=== PATIENT | male | born 1950 | race Caucasian/White ===

== ENCOUNTER → 2016-12-22 | Outpatient (CLI) | payer BC ==
[~2016-12-22] MED LIST: ALFU10TA30 PO; BNC40 PO
[2016-12-22 13:15] LABS: BASO % 0.4 %; BASO ABS # 0.02 K/uL (0-0.2); COMPLETE YES; EOS % 1.8 %; HEMATOCRIT 41.2 % (42-52); IG% 0.2 %; LYMPH % 23.9 %; LYMPH ABS # 1.31 K/uL (1.2-3.4); MEAN CELL VOLUME 92.4 fL (80-100); MEAN CORPUSCULAR HEMOGLOBIN 32.3 pg (25-34); MONO % 10.8 %; NEUT % 62.9 %; PLATELET COUNT 210 K/uL (130-400); RED BLOOD COUNT 4.46 M/uL (4.7-6.1); WHITE BLOOD COUNT 5.47 K/uL (4.8-10.8)
[2016-12-22 14:36] LABS: BLOOD UREA NITROGEN 15 mg/dl (7-18); BUN/CREATININE RATIO 15.3 (10-20); CALCIUM 8.4 mg/dl (8.5-10.1); CARBON DIOXIDE 29 mmol/L (21-32); CHLORIDE 102 mmol/L (98-107); CREATININE 0.99 mg/dl (0.60-1.40); GLUCOSE 107 mg/dl (70-99); POTASSIUM 3.8 mmol/L (3.5-5.1); SODIUM 138 mmol/L (136-145)
== END | disposition home or self-care (01) ==
LOC: C.LABBC 10:06
PROVIDERS: ATTEND Family Medicine
DX: R10.9 Unspecified abdominal pain (principal)

== ENCOUNTER → 2016-12-22 | Outpatient (CLI) | payer BC ==
[~2016-12-22] MED LIST changes: +OPTIRAY 320 IV PRN
--- NOTE | 2016-12-22 16:24 | DIAGNOSTIC IMAGING REPORT ---
ABDOMEN AND PELVIS CT WITH IV AND ORAL CONTRAST CT DOSE: 760.57 mGy.cm HISTORY: Pain R10.9 Abdominal pain LLQ, LUQ - r/o diverticulitis.[id number] TECHNIQUE: Multiaxial CT images of the abdomen and pelvis were performed following the use of intravenous and oral contrast. COMPARISON STUDY: 11/14/2008 FINDINGS: Lung bases are clear. There is small hilar hernia. Interval cholecystectomy. Spleen is uniform. 5 mm chronic cyst superior aspect of the spleen. Liver is uniform throughout. Pancreas is unremarkable. Kidneys negative for hydronephrosis. The bowel pattern is nonobstructive. There are scattered colonic diverticuli with no evidence for diverticulitis. Several small mesenteric nodes possibly reactive. IMPRESSION: 1. Interval cholecystectomy. 2. Scattered colonic diverticuli with no evidence of diverticulitis. 3. Mild mesenteric adenitis. Electronically signed by: Amadeo Rodrigues M.D. 12/22/2016 4:23 PM Dictated Date/Time: 12/22/2016 4:19 PM
== END | disposition home or self-care (01) ==
LOC: C.CTS 13:36
PROVIDERS: ATTEND Family Medicine
DX: R10.9 Unspecified abdominal pain (principal)

== ENCOUNTER 2025-07-16 10:24 | Inpatient (IN) ==
--- NOTE | 2025-07-16 11:04 | Emergency Department Note ---
History of Present Illness General Chief complaint: Urinary Symptoms Stated complaint: URINARY PROBLEM Time Seen by Provider: 07/16/25 10:39 History of Present Illness Maximum Pain Intensity: 10 This is a 75-year-old male who presents to the emergency department via private vehicle with complaints of "painful urination, thyroid issues". The patient states that earlier this month he notes that his eyes were "bulging" and he was concerned noting history of Graves' disease. Patient states that he underwent further thyroid testing and there were abnormalities noted. He notes that he was started on methimazole and a diuretic. Patient denies any fevers or chills. However he does note ongoing suprapubic abdominal discomfort particularly with attempted urination. He also notes bilateral lower extremity edema. He notes he has not been able to sleep over the past few days. Home Medications Medication Instructions Recorded Confirmed Type alfuzosin 10 mg tablet,extended 10 mg PO HS 03/23/21 07/16/25 History release 24 hr (Uroxatral) diltiazem HCl 240 mg 240 mg PO HS 03/23/21 07/16/25 History capsule,extended release 24 hr metoprolol succinate 50 mg 50 mg PO BID 03/23/21 07/16/25 History tablet,extended release 24 hr furosemide 20 mg tablet 20 mg PO DAILY 07/16/25 07/16/25 History methimazole 10 mg tablet 10 mg PO BID 07/16/25 07/16/25 History potassium chloride 10 mEq 10 meq PO DAILY 07/16/25 07/16/25 History capsule,extended release tadalafil 5 mg tablet 5 mg PO UD 07/16/25 07/16/25 History Allergies Allergy/AdvReac Type Severity Reaction Status Date / Time No Known Allergies Allergy Unverified 02/08/11 09:33 Past Med/Surg History Problem List (Updated 07/16/25 @ 17:04 by Mehran Sagastume PA-C) Suprapubic discomfort (Acute) Atrial fibrillation with RVR (Acute) Decompensated heart failure (Acute) Thyrotoxicosis due to Graves' disease (Acute) Medical History History of multiple sclerosis BPH (benign prostatic hyperplasia) Chronic atrial fibrillation Hereditary hemochromatosis Greater trochanteric bursitis of right hip Tendinitis of left rotator cuff Surgical History History of repair of rotator cuff History of total left hip arthroplasty History of total right hip arthroplasty Family History (Updated 07/16/25 @ 15:14 by Berenice Guerra PA-C) Other Familial hemochromatosis Social History Smoking Status: Never smoker Preferred Language: Tunisian Feels Safe at Home: Yes Review of Systems A total of 10 systems reviewed and were otherwise negative Physical Exam Vital Signs Vital Signs - 24 hr 07/16/25 10:30 07/16/25 11:07 07/16/25 11:12 Temperature 36.8 C Temperature Source Temporal Artery Scan Pulse Rate 121 H 117 H 124 H Pulse Rate [Apical] Respiratory Rate 18 16 Respiratory Effort / Characteristics Non-Labored Spontaneous Respiratory Depth Normal Respiratory Pattern Blood Pressure 147/97 H Blood Pressure [Right Arm] Blood Pressure Mean 113 Blood Pressure Mean [Right Arm] Blood Pressure Position Sitting Pulse Oximetry 96 97 Oxygen Delivery Method Room Air Room Air Sepsis Recent Fever Within 48 Hours Yes Sepsis New/Unexplained Change in Mental Status No Sepsis Action Taken by Nursing No Action Required 07/16/25 12:30 07/16/25 13:26 07/16/25 13:40 Temperature Temperature Source Pulse Rate 117 H Pulse Rate [Apical] 127 H 118 H Respiratory Rate 16 16 Respiratory Effort / Characteristics Non-Labored Spontaneous Non-Labored Spontaneous Respiratory Depth Normal Normal Respiratory Pattern Regular Blood Pressure 163/105 H Blood Pressure [Right Arm] 135/105 H 152/112 H Blood Pressure Mean Blood Pressure Mean [Right Arm] 115 125 Blood Pressure Position Pulse Oximetry 98 97 Oxygen Delivery Method Room Air Room Air Sepsis Recent Fever Within 48 Hours Sepsis New/Unexplained Change in Mental Status Sepsis Action Taken by Nursing VITAL SIGNS - Vital signs and nursing notes were reviewed. Stable and afebrile. GENERAL - 75-year-old male appearing his stated age who is in no acute distress. Communicates well with provider and answers questions appropriately. SKIN - Without rashes. There is bilateral lower extremity edema noted. HEAD - NC/AT. EYES - PERRL with EOMI bilaterally. Sclera anicteric. EARS - No deformities of external structures noted on gross examination bilaterally. NOSE - Midline and without cyanosis. No epistaxis or purulent drainage noted. MOUTH/OROPHARYNX - Without perioral cyanosis. NECK - Neck with FROM. No nuchal rigidity. LUNGS - CTA CARDIAC - tachycardic with irregular rate and rhythm ABDOMEN - Abdominal contour normal without pulsations or visible masses. BS normoactive all four quadrants. No tenderness, palpable masses, hepatosplenomegaly, or ascites noted. EXTREMITIES - No clubbing or peripheral cyanosis. +5/5 strength noted in UE/LE bilaterally. NEUROLOGIC - Cranial nerves II through XII grossly intact. PSYCH -alert, oriented and pleasant on exam Course Administered Medications Propranolol HCl (Propranolol Hcl 20 Mg Tab) 20 mg PO Q2H MARTHA Stop: 08/15/25 14:59 Last Admin: 07/16/25 15:53 Dose: 20 mg Documented By: REID Propylthiouracil (Propylthiouracil 50 Mg Tab) 200 mg PO Q6H MARTHA Stop: 08/15/25 14:59 Last Admin: 07/16/25 15:59 Dose: 200 mg Documented By: REID Discontinued Medications Furosemide (Furosemide 40 Mg/4 Ml Vial) 40 mg IV ONE ONE Stop: 07/16/25 14:33 Last Admin: 07/16/25 14:45 Dose: 40 mg Documented By: EUGENIA Potassium Chloride (K Nilson / Wtr) 10 meq in 100 mls @ 100 mls/hr IV Q1H MARTHA Stop: 07/16/25 16:29 Last Admin: 07/16/25 16:10 Dose: 100 mls/hr Documented By: Infusion: 07/16/25 16:05 Dose: Infused Documented By: Admin: 07/16/25 14:46 Dose: 100 mls/hr Documented By: EUGENIA Ioversol (Optiray 320 125ml) 119 ml IV ONCE ONE Stop: 07/16/25 14:34 Last Admin: 07/16/25 14:34 Dose: 119 ml Documented By: GLENNY Metoprolol Tartrate (Metoprolol Tartrate 1 Mg/Ml Vial) 5 mg IV NOW STA Stop: 07/16/25 13:10 Last Admin: 07/16/25 13:26 Dose: 5 mg Documented By: EDWIN Potassium Chloride (Potassium Chloride Crtab 20 Meq Tabcr) 60 meq PO NOW STA Stop: 07/16/25 13:35 Last Admin: 07/16/25 13:43 Dose: 60 meq Documented By: EUGENIA Tamsulosin HCl (Tamsulosin Hcl 0.4 Mg Cap) 0.4 mg PO NOW ONE Stop: 07/16/25 14:25 Last Admin: 07/16/25 14:45 Dose: 0.4 mg Documented By: EUGENIA Medical Decision Making Laboratory Data 07/16/25 10:45 07/16/25 10:45 Lab Results 07/16/25 07/16/25 07/16/25 Range/Units 10:45 11:38 11:40 WBC 6.04 (4.8-10.8) K/ul RBC 3.73 L (4.70-6.10) M/uL Hgb 12.3 L (14.0-18.0) g/dl Hct 33.1 L (42.0-52.0) % MCV 88.7 (80.0-100.0) fL MCH 33.0 (25.0-34.0) pg MCHC 37.2 H (32.0-36.0) g/dL RDW Std Deviation 36.9 (36.4-46.3) fL RDW Coeff of Chris 11.5 (11.5-14.5) % Plt Count 242 (130-400) K/uL MPV 9.6 (9.4-12.4) fL Immature Gran % (Auto) 0.3 % Neut % (Auto) 76.0 % Lymph % (Auto) 10.9 % Haakon % (Auto) 11.8 % Eos % (Auto) 0.7 % Baso % (Auto) 0.3 % Neut # (Auto) 4.59 (1.40-6.50) K/uL Lymph # (Auto) 0.66 L (1.20-3.40) K/uL Haakon # (Auto) 0.71 H (0.11-0.59) K/uL Eos # (Auto) 0.04 (0.00-0.50) K/uL Baso # (Auto) 0.02 (0.00-0.20) K/uL Immature Gran # (Auto) 0.02 (0.01-0.20) K/uL PT 11.4 (9.0-12.0) Seconds INR 1.1 (0.9-1.1) APTT 28 (21-31) Seconds PTT Ratio 1.0 Sodium 135 L (136-145) mmol/L Potassium 3.4 L (3.5-5.1) mmol/L Chloride 100 (98-107) mmol/L Carbon Dioxide 27 (21-32) mmol/L Anion Gap 8 (3-11) BUN 18 (6-23) mg/dl Creatinine 0.56 L (0.6-1.4) mg/dl Est Cr Clr Drug Dosing 117.7 ml/min eGFR 101.52 BUN/Creatinine Ratio 32.1 H (10-20) Glucose 136 H (70-99(Fasting)) mg/dl Lactate 1.2 (0.4-2.0) mmol/L Calcium 9.2 (8.6-10.3) mg/dl Magnesium 1.9 (1.7-2.4) mg/dl Total Bilirubin 1.5 H (0.2-1.0) mg/dl AST 16 (13-39) U/L ALT 15 (7-52) U/L Alkaline Phosphatase 57 (34-104) U/L Troponin I High Sens 10.6 (0-20) pg/ml B-Natriuretic Peptide 297 H (0-100) pg/ml Total Protein 6.4 (6.0-8.3) gm/dl Albumin 3.7 (3.4-5.0) gm/dl Globulin 2.7 (2.5-4.0) gm/dl Albumin/Globulin Ratio 1.4 (0.9-2) Procalcitonin < 0.02 (0-0.5) ng/ml TSH < 0.010 L (0.300-4.500) uIu/ml Free T4 5.88 H (0.61-1.60) ng/dl Urine Color Yellow Urine Appearance Clear (Clear) Urine pH 7.0 (4.5-7.5) Ur Specific [place] 1.015 (1.000-1.030) Urine Protein Negative (Negative) Urine Glucose (UA) Negative (Negative) Urine Ketones 2+ H (Negative) Urine Blood Trace-intact H (Negative) Urine Nitrite Negative (Negative) Urine Bilirubin Negative (Negative) Urine Urobilinogen Negative (Negative) Ur Leukocyte Esterase Negative (Negative) Urine RBC 0-2 (0-2) /hpf Urine WBC 0-5 (0-5) /hpf Ur Epithelial Cells 0-2 (0-2) /hpf Urine Bacteria None Seen (None Seen) Urine Comment Imaging Data Radiologist's Impression: Abdomen/Pelvis CT 07/16/25 13:21 CT SCAN OF THE ABDOMEN AND PELVIS WITH IV CONTRAST CLINICAL HISTORY: Lower abdominal pain. COMPARISON STUDY: Abdominal CT scans dated 12/22/2016 and 11/14/2008. TECHNIQUE: Following the IV administration of 119 cc of Optiray 320, CT scan of the abdomen and pelvis is performed from the lung bases to the proximal femora. Images are reviewed in the axial, sagittal, and coronal planes. IV contrast was administered without complication. A dose lowering technique was utilized adhering to the principles of ALARA. FINDINGS: Lung bases: The heart is markedly enlarged noting a small pericardial effusion. There is bibasilar scarring/atelectasis. No airspace consolidation or pleural effusion is identified. Liver: The contrast-enhanced liver is normal in size, contour, and attenuation. There is no intrahepatic biliary ductal dilatation. The hepatic veins and portal veins are patent. Gallbladder: Surgically absent noting clips in the gallbladder fossa. Spleen: Normal in size and attenuation. Pancreas: Mild atrophic and grossly unremarkable. Adrenal glands: Nonspecific thickening of the adrenal glands is similar to previous. Kidneys: The contrast enhanced kidneys are normal in size. There is moderate to severe left hydroureteronephrosis. There is associated left-sided perinephric stranding and trace fluid. The uterus dilated to the level of the bladder with no obstructing stone or lesion clearly seen. No hydronephrosis is seen on the right. The kidneys enhance symmetrically. A retroaortic left renal vein is incidentally noted. Abdominal vasculature: There is moderate atherosclerotic calcification and ectasia of the abdominal aorta. Bowel: There is moderate colonic diverticulosis without CT evidence of acute diverticulitis. No bowel obstruction is seen. The appendix is not visualized. Peritoneum: There is no intraperitoneal free air or abdominal ascites. There is a fat-containing umbilical hernia. Lymphadenopathy: None. Pelvic viscera: Evaluation of the pelvis is degraded by streak artifact from bilateral hip arthroplasties. The prostate gland is enlarged and heterogeneous. The bladder is distended, and the wall appears thickened/trabeculated indicating chronic outlet obstruction. There are large bladder diverticula. There are bilateral fat-containing groin hernias. Skeletal structures: The skeletal structures are osteopenic. There is moderate lumbosacral spondylosis. No lytic or blastic lesions are seen. Bilateral hip arthroplasties are in place. There is a large amount of bursal fluid around the right hip. IMPRESSION: 1. There is moderate to severe left hydroureteronephrosis, with the left ureter dilated to the level of the bladder. No obstructing stone or lesion is seen by CT, and this is new from 12/22/2016. There is associated left-sided perinephric stranding and trace fluid. Follow up with urology is recommended. 2. There is no hydronephrosis on the right. 3. Prostatomegaly with significant bladder distention and evidence of chronic bladder outlet obstruction. 4. Colonic diverticulosis without CT evidence of acute diverticulitis. 5. Marked cardiomegaly. 6. Additional findings as above. ACT 112: Negative or not required by law. Electronically signed by: Luan Jiménez M.D. 07/16/2025 3:20 PM Chest CTA 07/16/25 13:21 CT ANGIOGRAM OF THE CHEST CLINICAL HISTORY: Fever. Chills. Evaluate for pulmonary embolus. COMPARISON STUDY: Chest CT February 08, 2011. TECHNIQUE: Following the IV administration of 119 cc of Optiray 320, CT angiogram of the chest was performed from the upper abdomen to the thoracic inlet utilizing the pulmonary embolus protocol. Images are reviewed in the axial, sagittal, and coronal planes. 3-D MIPS images are created and assessed. IV contrast was administered without complication. A dose lowering technique was utilized adhering to the principles of ALARA. CT DOSE: 7.58 mGy.cm FINDINGS: No pulmonary emboli are identified. There is no thoracic aortic dissection. The heart is moderately enlarged. There is no pericardial effusion. There is no thoracic lymphadenopathy. There is no pneumothorax. Trace left pleural fluid is noted. There is no significant pleural effusion. No consolidation is identified suggest pneumonia. Linear densities within lungs represent scarring or atelectasis. The central airways are patent. Abdomen and pelvis CT will be reported separately. IMPRESSION: 1. No pulmonary emboli identified. 2. No acute intrathoracic findings. 3. Moderate cardiomegaly. ACT 112: Negative or not required by law. Electronically signed by: aSrath Foster M.D. 07/16/2025 2:54 PM MDM Narrative Patient was seen and evaluated as above in room B08. Review was performed of triage nursing notes and vital signs. After obtaining a thorough history and physical examination the above work up was performed. Patient presents to us today for evaluation of abnormal thyroid studies with progressive bilateral lower extremity edema and suprapubic abdominal pain. On arrival the patient is tachycardic, found to be in A-fib with RVR. EKG was performed and per my interpretation reveals atrial fibrillation with RVR at a rate of 117 bpm. QTc 460. QRS 86. There is no ST elevation on this rhythm tracing. Patient did note he already had his metoprolol today and diltiazem last evening. Patient will be maintained on the cardiac and pulse oximetry monitoring. Options of care were discussed with the patient. IV access was established and labs were drawn. There is no leukocytosis. There is minor anemia with hemoglobin of 12.3. Coags normal. Mild hypokalemia 3.4 with hyponatremia at 135. No evidence of kidney or liver failure. Mild hyperbilirubinemia at 1.5. Troponin within normal range making ACS less likely. BNP is elevated at 297. Procalcitonin undetectable making sepsis less likely. TSH markedly low at an undetectable level of less than 0.010. Free T4 markedly elevated at 5.88. I did review the patient's chest x-rays obtained a few days ago in the [facility] record. While here the patient was medicated with IV Lopressor noting the A-fib with RVR. I do believe that further evaluation and management in a patient setting is warranted. I discussed the case with hospitalist service, I spoke with Nick Guerra PA-C. Plan at this time is to proceed with further studies to include CT of the chest as well as abdomen/pelvis CT. I also added on bilateral Doppler ultrasounds. CT imaging as above and I reviewed these findings with the patient. No PE. There are multiple findings in the abdomen/pelvis which may be contributory to the patient's lower urinary tract symptoms at this time. The urinalysis here does not suggest infection. GCS: 15 In the evaluation and treatment of this patient the following differential diagnoses were entertained: A-fib with RVR, thyrotoxicosis, thyroid storm, malignancy, dehydration, among others Impression & Plan Atrial fibrillation with RVR, Thyrotoxicosis due to Graves' disease, Decompensated heart failure, Suprapubic discomfort Discharge Plan Visit Data Chief Complaint: Urinary Symptoms Stated Complaint: URINARY PROBLEM ED Provider: Omari Koch ED Midlevel Provider: Mehran Sagastume Discharge Problem: Atrial fibrillation with RVR, Thyrotoxicosis due to Graves' disease, Decompensated heart failure, Suprapubic discomfort Patient Disposition: Admitted As Inpatient Condition: Good Forms Stand Alone Forms: My [facility] Prescriptions Prescriptions: No Action metoprolol succinate 50 mg tablet extended release 24 hr 50 mg PO BID diltiazem HCl 240 mg capsule,extended release 24hr 240 mg PO HS alfuzosin [Uroxatral] 10 mg tablet extended release 24 hr 10 mg PO HS Rx Instructions: administer after the same meal each day potassium chloride 10 mEq capsule, extended release 10 meq PO DAILY furosemide 20 mg tablet 20 mg PO DAILY methimazole 10 mg tablet 10 mg PO BID tadalafil 5 mg tablet 5 mg PO UD Referrals Referrals: Lee Longoria MD [Primary Care Provider] -
[2025-07-16 11:26] LABS: Hematocrit (blood only) 33.1 % (42.0-52.0); Hemoglobin 12.3 g/dl (14.0-18.0); Immature Granulocytes # (auto) 0.02 K/uL (0.01-0.20); Immature Granulocytes % (auto) 0.3 %; Mean Corpuscular Hemoglobin 33.0 pg (25.0-34.0); Mean Corpuscular Volume 88.7 fL (80.0-100.0); Platelet Count 242 K/uL (130-400); RDW Standard Deviation 36.9 fL (36.4-46.3); Red Blood Count 3.73 M/uL (4.70-6.10); White Blood Count 6.04 K/ul (4.8-10.8)
[2025-07-16 11:43] LABS: Alanine Aminotransferase 15 U/L (7-52); Albumin Globulin Ratio 1.4 (0.9-2); Alkaline Phosphatase 57 U/L (34-104); Anion Gap 8 (3-11); Bilirubin,Total 1.5 mg/dl (0.2-1.0); Blood Urea Nitrogen 18 mg/dl (6-23); Calcium 9.2 mg/dl (8.6-10.3); Carbon Dioxide 27 mmol/L (21-32); Chloride 100 mmol/L (98-107); Creatinine Clr Calc Pharmacy 117.7 ml/min; Globulin 2.7 gm/dl (2.5-4.0); Glucose 136 mg/dl (70-99(Fasting)); Magnesium 1.9 mg/dl (1.7-2.4); Potassium 3.4 mmol/L (3.5-5.1); Sodium 135 mmol/L (136-145); Total Protein 6.4 gm/dl (6.0-8.3)
[2025-07-16 12:00] LABS: INR 1.1 (0.9-1.1); Partial Thromboplastin Time 28 Seconds (21-31); Prothrombin Time 11.4 Seconds (9.0-12.0); Thyroid Stimulating Hormone < 0.010 uIu/ml (0.300-4.500)
[2025-07-16 12:05] LABS: Appearance Urine Clear (Clear); Glucose Urine UA Negative (Negative)
--- NOTE | 2025-07-16 12:19 | Emergency Department Note ---
ED Visit Note I was consulted by the Advanced Practice Provider, Mehran Sagastume PA-C. I personally made/approved the management plan and take responsibility for the patient management. I performed a substantive portion of the visit. This includes the aspects of: -History/Physical/Personally seeing the patient -MDM .
[2025-07-16 12:28] LABS: Epithelial Cell Urine 0-2 /hpf (0-2)
[2025-07-16] MEDS: METOPROLOL TARTRATE 1 MG/ML VIAL IV STA (13:26)
[2025-07-16] MEDS: POTASSIUM CHLORIDE CRTAB 20 MEQ TABCR PO STA (13:43)
--- NOTE | 2025-07-16 14:30 | History & Physical Report ---
Date of Service July 16, 2025 Assessment & Plan (1) Thyrotoxicosis due to Graves' disease: Plan: This is a 75-year-old male with PMH of chronic atrial fibrillation (not on anticoagulation), hyperthyroidism with history of Graves disease, hereditary hemochromatosis, hyperlipidemia, BPH, history of multiple sclerosis and other medical problems listed below who presents with progressive swelling of lower extremities over the past week as well as suprapubic pain and thyroid lab abnormalities and presentation consistent with thyrotoxicosis. History of Graves disease and was treated with methimazole years ago but then felt to be in remission Seen by PCP on 07/10 for BLE edema and fatigue - TFTs abnormal on 07/14- TSH <0.01 and free T4 7.8 - started on methimazole 10mg BID In ED, found to have A fib with RVR with HR 118 with BLE edema Repeat TSH <0.010 and free T4 5.[address] Carty of endocrine - Rogel-Wartofsky Point Scale 30 points, suggestive of impending thyroid storm * Appropriate for PCU admission, consider transfer to ICU if patient exhibits progressive storm symptoms (febrile, AMS, TOMOGRAPHY TECHNOLOGIST changes), could consider hydrocortisone 100 Q8H at that time * PTU 200mg Q6H while inpatient and transition to methimazole 20mg BID at time of discharge * Propranolol 20mg PO Q2H for now until HR within normal range, then consider ext release TID dosing * Will need repeat TFTs in 1 month, Dr. Carty will arrange for clinic f/u in 3 weeks (2) Atrial fibrillation with RVR: Plan: ECG with a fib with rvr at 117 H/o chronic atrial fibrillation, asymptomatic Non-selective beta blockers as above, will hold Lopressor for now Hold evening diltiazem given CHF findings, awaiting echo Not on anticoagulation due to patient preference as outpatient. Follows with Dr. Gonzales, previously has tried coumadin and alverto Discussed IV heparin while admitted given A fib with RVR and hyperthyroidism - patient deliberating and upon readdressing this evening, patient agreeable to IV heparin Appreciate cardiology input (3) Decompensated heart failure: Plan: Progressive BLE and 8-10 lb weight gain in last 2 weeks Started on 20mg PO Lasix on 07/10 without improvement Chest CTA without evidence of PE. Trace left pleural fluid is noted, no significant pleural effusion. No consolidation s/o PNA. Moderate cardiomegaly 2D echo ordered (previous echo from 2018 with EF 60%) Given 40mg IV lasix x 1 in ED with potassium supplementation, cardiology consulted for further diuresis recs Strict I&Os, daily weights, low sodium diet (4) Suprapubic discomfort: (5) Hydronephrosis: (6) BPH (benign prostatic hyperplasia): Plan: Inability to empty bladder over past week, takes alfuzosin HS UA unremarkable CT abd/pelvis with moderate-severe left hydroureteronephrosis. There is associated left-sided perinephric stranding and trace fluid. No obstructing stone or lesion is seen by CT, and this is new from 12/22/2016 Hernandez catheter placed - discussed with urology, who reviewed imaging. Feel hydro is possibly reflex and agree with catheter for decompression. No add'l intervention needed at this time Routine urology consult placed Starting on empirin Rocephin given perinephric stranding, per d/w urology (7) Hereditary hemochromatosis: Plan: Follows with heme-onc -last therapeutic phlebotomy was done on 07/08.Has CBC and ferritin monitored monthly (with goal ferritin of <100) and follows a low iron diet, instructed to minimize alcohol intake Follow CBC (8) History of multiple sclerosis: Plan: Mentioned remotely in chart, back in 2016, may need to clarify further DVT Ppx: IV heparin Code status: FULL PCP: Swati Dispo: Admitted to PCU Patient seen in collaboration with Dr. Bravo. Please see addendum. I spent a total of 80 minutes coordinating, documenting, and providing care for this patient excluding time spent in the performance of separately billed services or time spent by another provider/QHP. History of Present Illness Chief Complaint: suprapubic pain, fatigue, abnormal labs Primary Care Provider: Lee Longoria MD This is a 75-year-old male with PMH of chronic atrial fibrillation (not on anticoagulation), hyperthyroidism with history of Graves disease, hereditary hemochromatosis, hyperlipidemia, BPH, history of multiple sclerosis and other medical problems listed below who presents with progressive swelling of lower extremities over the past week as well as suprapubic pain. History obtained from patient and extensive chart review. Was seen in the outpatient clinic a week ago for lower extremity swelling and fatigue, found to have abnormal thyroid function test consistent with hyperthyroidism. Has history of Graves disease and was treated with methimazole years ago but then felt to be in remission. Last had TFTs checked in December 2024 and they were WNL. On 07/10 in clinic, TSH 0.02 and free T4 4.0. Ask a doc Endo was consulted on 07/10, who recommended repeat thyroid labs in 2 weeks but due to persistent symptoms, patient was seen again in clinic on 07/12 and TSH <0.01 and free T4 7.8 at that time. Methimazole 10 mg BID was started. Was also noted to have worsening BLE edema. CXR unremarkable and no respiratory symptoms. Started on Lasix 20mg PO and Kcl 10meq daily at that time. Presents to ED today with ongoing BLE edema, estimating 8-10 lb weight gain in the past 2 weeks. No palpitations or chest pain. Has chronic A fib which is asymptomatic, per patient. No fever or chills. No confusion, lightheadedness. Having suprapubic pain and feels like he cannot fully empty bladder. UA done in clinic 07/12 was unremarkable. Frequent bowel movements but denies diarrhea. Last echo showed preserved EF of 60% in July 2018. Was scheduled for outpatient echo 07/24. Follows with Dr. Gonzales of cardiology for history of atrial fibrillation. Was previously on coumadin years ago but "did not tolerate it well". Was then on Eliquis but in 2022, developed numbness and tingling of hands with occasional dizziness, which he attributed to Eliquis. Symptoms resolved after he discontinued. Is not on anticoagulation. Follows with heme-onc for hereditary hemochromatosis-last therapeutic phlebotomy was done on 07/08.Has CBC and ferritin monitored monthly (with goal ferritin of <100) and follows a low iron diet, instructed to minimize alcohol intake. Allergies Allergy/AdvReac Type Severity Reaction Status Date / Time No Known Allergies Allergy Unverified 02/08/11 09:33 Home Medications Medication Instructions Recorded Confirmed Type alfuzosin 10 mg tablet,extended 10 mg PO HS 03/23/21 07/16/25 History release 24 hr (Uroxatral) diltiazem HCl 240 mg 240 mg PO HS 03/23/21 07/16/25 History capsule,extended release 24 hr metoprolol succinate 50 mg 50 mg PO BID 03/23/21 07/16/25 History tablet,extended release 24 hr furosemide 20 mg tablet 20 mg PO DAILY 07/16/25 07/16/25 History methimazole 10 mg tablet 10 mg PO BID 07/16/25 07/16/25 History potassium chloride 10 mEq 10 meq PO DAILY 07/16/25 07/16/25 History capsule,extended release tadalafil 5 mg tablet 5 mg PO UD 07/16/25 07/16/25 History Past Med/Surg History Problem List (Updated 07/16/25 @ 18:03 by Berenice Guerra PA-C) Hydronephrosis Suprapubic discomfort (Acute) Atrial fibrillation with RVR (Acute) Decompensated heart failure (Acute) Thyrotoxicosis due to Graves' disease (Acute) Medical History History of multiple sclerosis BPH (benign prostatic hyperplasia) Chronic atrial fibrillation Hereditary hemochromatosis Greater trochanteric bursitis of right hip Tendinitis of left rotator cuff Surgical History History of repair of rotator cuff History of total left hip arthroplasty History of total right hip arthroplasty Family History (Updated 07/16/25 @ 15:14 by Berenice Guerra PA-C) Other Familial hemochromatosis Social History Smoking Status: Never smoker Preferred Language: Mexican Feels Safe at Home: Yes Review of Systems Review of Systems: At least ten systems reviewed and negative except as noted in the HPI. Physical Exam Physical Exam: General Appearance: WD/WN, vitals as above, NAD, sitting up in bed, pleasant, conversing easily Head: normocephalic, atraumatic Eyes: PERRL, conjunctivae normal, anicteric sclerae, + periorbital edema, proptosis ENT: external ear and nose normal, oropharynx normal Neck: normal visual inspection, +thyromegaly Respiratory: normal respiratory effort, + coarse breath sounds. No accessory muscle use Cardiovascular: irregular rate &rhythm, normal peripheral pulses, 2+ BLE edema up to knees Chest: normal inspection of chest Abdomen/GI: normal bowel sounds, soft, + suprapubic TTP, no guarding Extremities/Musculoskeletal: no cyanosis or clubbing, extremities motor strength 5/5 Neurologic: PERRL, EOMI, accommodation nl, no face palsy, no dysarthria, CN's II-XI intact bilaterally and moves all extremities Psychiatric: A+Ox3 Skin: no rashes, normal color, warm/dry Results & Data Results & Data Vital Signs (Past 12 Hours) Vital Signs Temp Pulse Pulse Resp BP BP Pulse Ox 07/16/25 13:40 118 H 16 152/112 H 97 07/16/25 13:26 117 H 163/105 H 07/16/25 12:30 127 H 16 135/105 H 98 07/16/25 11:12 124 H 07/16/25 11:07 117 H 16 97 07/16/25 10:30 36.8 C 121 H 18 147/97 H 96 O2 Del Method 07/16/25 13:40 Room Air 07/16/25 13:26 07/16/25 12:30 Room Air 07/16/25 11:12 07/16/25 11:07 Room Air 07/16/25 10:30 Room Air Laboratory Results Short CBC 07/16/25 Range/Units 10:45 WBC 6.04 (4.8-10.8) K/ul Hgb 12.3 L (14.0-18.0) g/dl Hct 33.1 L (42.0-52.0) % Plt Count 242 (130-400) K/uL BMP 07/16/25 10:45 Sodium 135 L Potassium 3.4 L Chloride 100 Carbon Dioxide 27 BUN 18 Creatinine 0.56 L Glucose 136 H Calcium 9.2 Liver Function 07/16/25 Range/Units 10:45 Total Bilirubin 1.5 H (0.2-1.0) mg/dl AST 16 (13-39) U/L ALT 15 (7-52) U/L Alkaline Phosphatase 57 (34-104) U/L Albumin 3.7 (3.4-5.0) gm/dl Urine 07/16/25 Range/Units 11:40 Urine Color Yellow Urine Appearance Clear (Clear) Urine pH 7.0 (4.5-7.5) Ur Specific [place] 1.015 (1.000-1.030) Urine Protein Negative (Negative) Urine Glucose (UA) Negative (Negative) Diagnostic Findings Chest CTA 07/16/25 13:21 CT ANGIOGRAM OF THE CHEST CLINICAL HISTORY: Fever. Chills. Evaluate for pulmonary embolus. COMPARISON STUDY: Chest CT February 08, 2011. TECHNIQUE: Following the IV administration of 119 cc of Optiray 320, CT angiogram of the chest was performed from the upper abdomen to the thoracic inlet utilizing the pulmonary embolus protocol. Images are reviewed in the axial, sagittal, and coronal planes. 3-D MIPS images are created and assessed. IV contrast was administered without complication. A dose lowering technique was utilized adhering to the principles of ALARA. CT DOSE: 2026.58 mGy.cm FINDINGS: No pulmonary emboli are identified. There is no thoracic aortic dissection. The heart is moderately enlarged. There is no pericardial effusion. There is no thoracic lymphadenopathy. There is no pneumothorax. Trace left pleural fluid is noted. There is no significant pleural effusion. No consolidation is identified suggest pneumonia. Linear densities within lungs represent scarring or atelectasis. The central airways are patent. Abdomen and pelvis CT will be reported separately. IMPRESSION: 1. No pulmonary emboli identified. 2. No acute intrathoracic findings. 3. Moderate cardiomegaly. ACT 112: Negative or not required by law. Electronically signed by: Sarath Foster M.D. 07/16/2025 2:54 PM ECG Additional Comments: A fib with RVR at 117, LAD Code Status & VTE Plan VTE Prophylaxis Plan VTE Prophylaxis will be ordered: Yes Supervising Physician Co-Signing Physician Notes Attending addendum: The patient was seen and examined in the emergency room in the presence of the He has a history of Graves' disease off any medications and also paroxysmal atrial fibrillation not taking any Coumadin because of the low Kervin score as per the patient He has been complaining of palpitation, bilateral leg swelling and weight gain and also noted to have very low TSH and high T4 Denies any chest pain, any abdominal pain nausea no vomiting On examination Lying in bed without any acute distress Has significant tachycardia and high blood pressure without any apparent distress Chestclear to auscultate bilaterally HeartS1-S2, irregular Abdomenbenign Extremities1-2+ edema bilaterally CNSalert, awake and oriented x 3 and no focal neurodeficit His admission labs, EKG and imaging studies reviewed Has thyrotoxicosis with history of Graves' diseasediscussed with Dr. 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
[2025-07-16] MEDS: OPTIRAY 320 125ml IV ONE (14:34)
[2025-07-16] MEDS: TAMSULOSIN HCL 0.4 MG CAP PO ONE (14:45)
[2025-07-16] MEDS: FUROSEMIDE 40 MG/4 ML VIAL IV ONE (14:45)
[2025-07-16] MEDS: POTASSIUM CHLORIDE / WTR 10 MEQ/100 ML PLCT IV SCH (14:46)
--- NOTE | 2025-07-16 14:55 | CT Scan Report ---
CT ANGIOGRAM OF THE CHEST CLINICAL HISTORY: Fever. Chills. Evaluate for pulmonary embolus. COMPARISON STUDY: Chest CT February 08, 2011. TECHNIQUE: Following the IV administration of 119 cc of Optiray 320, CT angiogram of the chest was pe rformed from the upper abdomen to the thoracic inlet utilizing the pulmonary embolus protocol. Images are reviewed in the axial, sagittal, and coronal planes. 3-D MIPS images are created and assessed. I V contrast was administered without complication. A dose lowering technique was utilized adhering to the principles of ALARA. CT DOSE: 2026.58 mGy.cm FINDINGS: No pulmonary emboli are identified. There is no thoracic aortic dissection. The heart is mo derately enlarged. There is no pericardial effusion. There is no thoracic lymphadenopathy. There is n o pneumothorax. Trace left pleural fluid is noted. There is no significant pleural effusion. No conso lidation is identified suggest pneumonia. Linear densities within lungs represent scarring or atelect asis. The central airways are patent. Abdomen and pelvis CT will be reported separately. IMPRESSION: 1. No pulmonary emboli identified. 2. No acute intrathoracic findings. 3. Moderate cardiomegaly. ACT 112: Negative or not required by law. Electronically signed by: Sarath Foster M.D. 07/16/2025 2:54 PM
[2025-07-16] MEDS ORDERED: PROPRANOLOL HCL 60 MG LA CAP PO SCH (15:00)
--- NOTE | 2025-07-16 15:21 | CT Scan Report ---
CT SCAN OF THE ABDOMEN AND PELVIS WITH IV CONTRAST CLINICAL HISTORY: Lower abdominal pain. COMPARISON STUDY: Abdominal CT scans dated 12/22/2016 and 11/14/2008. TECHNIQUE: Following the IV administration of 119 cc of Optiray 320, CT scan of the abdomen and pelv is is performed from the lung bases to the proximal femora. Images are reviewed in the axial, sagitta l, and coronal planes. IV contrast was administered without complication. A dose lowering technique w as utilized adhering to the principles of ALARA. FINDINGS: Lung bases: The heart is markedly enlarged noting a small pericardial effusion. There is bibasilar sc arring/atelectasis. No airspace consolidation or pleural effusion is identified. Liver: The contrast-enhanced liver is normal in size, contour, and attenuation. There is no intrahepa tic biliary ductal dilatation. The hepatic veins and portal veins are patent. Gallbladder: Surgically absent noting clips in the gallbladder fossa. Spleen: Normal in size and attenuation. Pancreas: Mild atrophic and grossly unremarkable. Adrenal glands: Nonspecific thickening of the adrenal glands is similar to previous. Kidneys: The contrast enhanced kidneys are normal in size. There is moderate to severe left hydrouret eronephrosis. There is associated left-sided perinephric stranding and trace fluid. The uterus dilate d to the level of the bladder with no obstructing stone or lesion clearly seen. No hydronephrosis is seen on the right. The kidneys enhance symmetrically. A retroaortic left renal vein is incidentally n oted. Abdominal vasculature: There is moderate atherosclerotic calcification and ectasia of the abdominal a dinesh. Bowel: There is moderate colonic diverticulosis without CT evidence of acute diverticulitis. No bowel obstruction is seen. The appendix is not visualized. Peritoneum: There is no intraperitoneal free air or abdominal ascites. There is a fat-containing umbi lical hernia. Lymphadenopathy: None. Pelvic viscera: Evaluation of the pelvis is degraded by streak artifact from bilateral hip arthroplas ties. The prostate gland is enlarged and heterogeneous. The bladder is distended, and the wall appear s thickened/trabeculated indicating chronic outlet obstruction. There are large bladder diverticula. There are bilateral fat-containing groin hernias. Skeletal structures: The skeletal structures are osteopenic. There is moderate lumbosacral spondylosi s. No lytic or blastic lesions are seen. Bilateral hip arthroplasties are in place. There is a large amount of bursal fluid around the right hip. IMPRESSION: 1. There is moderate to severe left hydroureteronephrosis, with the left ureter dilated to the level of the bladder. No obstructing stone or lesion is seen by CT, and this is new from 12/22/2016. There i s associated left-sided perinephric stranding and trace fluid. Follow up with urology is recommended. 2. There is no hydronephrosis on the right. 3. Prostatomegaly with significant bladder distention and evidence of chronic bladder outlet obstruct ion. 4. Colonic diverticulosis without CT evidence of acute diverticulitis. 5. Marked cardiomegaly. 6. Additional findings as above. ACT 112: Negative or not required by law. Electronically signed by: Luna Jiménez M.D. 07/16/2025 3:20 PM
[2025-07-16] MEDS: PROPRANOLOL HCL 20 MG TAB PO SCH (15:53)
[2025-07-16] MEDS ORDERED: POLYETHYLENE (MIRALAX) 17 GM PACK PO PRN (18:11)
[2025-07-16] MEDS: cefTRIAXone SODIUM 2,000 MG/50 ML BAG IV SCH (18:44)
--- NOTE | 2025-07-16 18:46 | Ultrasound Report ---
Examination: Doppler venous ultrasound of the lower extremity Comparison: None Technique: Grayscale evaluation with compression, spectral flow, and color Doppler assessment of the deep venous system of the leg, from the groin to the knee, as well as the lower leg Findings: The external iliac, common femoral, femoral, popliteal, peroneal and anterior and posterior tibial veins demonstrate normal compressibility and blood flow. Impression: No evidence for DVT of the bilateral lower extremity Electronically signed by Jordan Waterman 07-16-2025 6:44 PM
[2025-07-16] MEDS: HEPARIN 25000 UNIT/500 ML D5W 25,000 UNITS/500 ML BAG IV SCH (18:57)
[2025-07-16] MEDS: HEPARIN SOD (PORCINE) 1000 UNIT/ML IV ONE (18:57)
[2025-07-16] MEDS: Heparin IV Adult Wt-Based Low-Dose w/ INITIAL Bolus Protocol IV STA (18:58)
[2025-07-16] MEDS: TAMSULOSIN HCL 0.4 MG CAP PO SCH (20:49)
[2025-07-16] MEDS: ONDANSETRON INJ 2 MG/ML 2 ML VIAL IV PRN (20:50)
--- NOTE | 2025-07-16 20:57 | Urology Consultation ---
Date of Consultation July 16, 2025 Assessment & Plan (1) Hydronephrosis: Patient has been admitted on the hospitalist service. From a urologic perspective we recommend the following: Patient was noted to have issues consistent with urinary retention Hernandez catheter has been placed and this modality should continue Would recommend initiating Flomax which has been initiated by primary service Consideration be given to performing cystoscopy at some point in the future, this can likely be pursued as an outpatient If the patient remains hospitalized consideration may be given to performing a voiding trial versus performing this as an outpatient Would recommend following serial labs Additional recommendations to be forthcoming based on his clinical course as unfolds Supervising Physician Co-Signing Physician Notes Patient discussed with Praveen chen Seen independently this morning, please see my notes for further details History of Present Illness Reason for Consultation: Urinary retention Attending Physician: John Bravo MD History of Present Illness This is a 75-year-old male who presented to the hospital secondary to progressive weakness as well as suprapubic pain. Patient says that over the past several weeks he has been having difficulty urinating. He specifically notes that he has had a decreased urinary stream and feels as though he cannot empty his bladder completely requiring multiple episodes of voiding in order to empty his bladder. He does note some dysuria at times but denies any back or flank pain. He denies any fevers, shakes, or chills and also denies any hematuria. He does report suprapubic discomfort. The patient does report a history of BPH for which he takes alfuzosin as an outpatient. Since arrival hospitalist patient has had labs and imaging which) reviewed. CT scan abdomen pelvis showed the patient had moderate to severe left hydronephrosis but no obstructing kidney stones were noted on CT scan. There is no right-sided hydronephrosis. Patient was noted to have prostamegaly with significant bladder distention. He also underwent a CT scan of the chest that showed no evidence of pulmonary emboli. A venous Doppler of the bilateral lower extremity showed no evidence of DVT.Labs included CBC were white blood cell count platelet count were normal. Hemoglobin hematocrit 12.3 and 33.1. Coagulation studies were normal. Chemistry profile showed sodium and potassium are 135 and 3.4. BUN and creatinine were both not elevated. Urinalysis was not indicative of infection. Since arrival to the hospital patient has had a Hernandez catheter placed and notes marked symptomatic relief of his presenting symptomatology. He was resting comfortably in bed at the time of my interview and was in no distress Allergies Allergy/AdvReac Type Severity Reaction Status Date / Time No Known Allergies Allergy Unverified 02/08/11 09:33 Home Medications Medication Instructions Recorded Confirmed Type alfuzosin 10 mg tablet,extended 10 mg PO HS 03/23/21 07/16/25 History release 24 hr (Uroxatral) diltiazem HCl 240 mg 240 mg PO HS 03/23/21 07/16/25 History capsule,extended release 24 hr metoprolol succinate 50 mg 50 mg PO BID 03/23/21 07/16/25 History tablet,extended release 24 hr furosemide 20 mg tablet 20 mg PO DAILY 07/16/25 07/16/25 History methimazole 10 mg tablet 10 mg PO BID 07/16/25 07/16/25 History potassium chloride 10 mEq 10 meq PO DAILY 07/16/25 07/16/25 History capsule,extended release tadalafil 5 mg tablet 5 mg PO UD 07/16/25 07/16/25 History Patient History Medical History History of multiple sclerosis BPH (benign prostatic hyperplasia) Chronic atrial fibrillation Hereditary hemochromatosis Greater trochanteric bursitis of right hip Tendinitis of left rotator cuff Surgical History History of repair of rotator cuff History of total left hip arthroplasty History of total right hip arthroplasty Family History (Updated 07/16/25 @ 15:14 by Berenice Guerra PA-C) Other Familial hemochromatosis Social History Smoking Status: Never smoker Second Hand Exposure: No; Hx Alcohol Use: Yes Alcohol type: wine Hx Substance Use: No Preferred Language: Malay Sternman Required: No Beliefs That Will Affect Care: None Current Living Situation: Spouse Other Information That Helps Us Care for You: No Feels Safe at Home: Yes Safety Concerns: Feels Safe At This Time Assistive Devices: Hearing Aid - Bilateral Review of Systems Review of Systems: All systems reviewed & are unremarkable except as noted in HPI & below Physical Exam Constitutional: WD/WN, vitals as above Eyes: no conjunctival abnormality ENMT: Ears: no hearing impairment and no external ear abnormality Mouth: no oropharynx abnormality Neck: trachea midline Respiratory: normal respiratory effort; no respiratory distress and no labored breathing Cardiovascular: Rate/Rhythm: regular rate and regular rhythm Gastrointestinal (Abdomen): Abdomen is soft without distention. There is no rigidity or signs of peritonitis. There is no pain with palpation Musculoskeletal: No calf tenderness Skin: no rashes Neurologic: moves all extremities Psychiatric: A+Ox3, euthymic affect Genitourinary: No CVA tenderness with percussion bilaterally. Hernandez catheter is in place draining clear yellow urine Results & Data Vital Signs (Past 12 Hours) Vital Signs Temp Pulse Pulse Resp BP BP Pulse Ox 07/16/25 20:50 111 H 155/77 H 07/16/25 19:47 36.6 C 125 H 18 167/90 H 96 07/16/25 19:30 125 H 152/92 H 07/16/25 18:14 36.8 C 117 H 18 167/93 H 97 07/16/25 17:33 112 H 21 168/97 H 97 07/16/25 13:40 118 H 16 152/112 H 97 07/16/25 13:26 117 H 163/105 H 07/16/25 12:30 127 H 16 135/105 H 98 07/16/25 11:12 124 H 07/16/25 11:07 117 H 16 97 07/16/25 10:30 36.8 C 121 H 18 147/97 H 96 O2 Del Method 07/16/25 20:50 07/16/25 19:47 Room Air 07/16/25 19:30 07/16/25 18:14 Room Air 07/16/25 17:33 Room Air 07/16/25 13:40 Room Air 07/16/25 13:26 07/16/25 12:30 Room Air 07/16/25 11:12 07/16/25 11:07 Room Air 07/16/25 10:30 Room Air PG Care Time/CCT Total # of Minutes Spent Total Time Spent with Patient: Total time spent is greater than 50% in coordination of care (as documented) at patient's floor/unit and/or counseling patient: Coding Level of Care Code 31712 INT INP/OBS CARE 3/75MIN Diagnoses Hydronephrosis N13.30
[2025-07-17 01:56] LABS: Hematocrit (blood only) 31.0 % (42.0-52.0); Hemoglobin 11.1 g/dl (14.0-18.0); Immature Granulocytes # (auto) 0.01 K/uL (0.01-0.20); Immature Granulocytes % (auto) 0.2 %; Mean Corpuscular Hemoglobin 31.5 pg (25.0-34.0); Mean Corpuscular Volume 88.1 fL (80.0-100.0); Platelet Count 218 K/uL (130-400); RDW Standard Deviation 37.2 fL (36.4-46.3); Red Blood Count 3.52 M/uL (4.70-6.10); White Blood Count 5.46 K/ul (4.8-10.8)
[2025-07-17 02:12] LABS: Alanine Aminotransferase 13.0 U/L (7-52); Albumin Globulin Ratio 1.4 (0.9-2); Alkaline Phosphatase 54.0 U/L (34-104); Anion Gap 8.0 (3-11); Bilirubin,Total 1.0 mg/dl (0.2-1.0); Blood Urea Nitrogen 17.0 mg/dl (6-23); Calcium 8.7 mg/dl (8.6-10.3); Carbon Dioxide 29.0 mmol/L (21-32); Chloride 101.0 mmol/L (98-107); Creatinine Clr Calc Pharmacy 104.6 ml/min; Globulin 2.3 gm/dl (2.5-4.0); Glucose 122.0 mg/dl (70-99(Fasting)); Magnesium 1.8 mg/dl (1.7-2.4); Potassium 3.2 mmol/L (3.5-5.1); Sodium 138.0 mmol/L (136-145); Total Protein 5.5 gm/dl (6.0-8.3)
[2025-07-17 02:37] LABS: ANTI-Xa, UFH(UnfractionatedHep 0.12 IU/ml (0.3-0.7)
[2025-07-17] MEDS ORDERED: Nursing to Pharmacy Communication SCH (02:45)
[2025-07-17] MEDS: MAGNESIUM SULFATE / D5W 1 GM/100 ML BAG IV ONE (02:58)
[2025-07-17] MEDS: POTASSIUM CHLORIDE CRTAB 20 MEQ TABCR PO STA (03:00)
[2025-07-17] MEDS: HEPARIN SOD (PORCINE) 1000 UNIT/ML IV ONE ×2 (03:01→10:39)
[2025-07-17] MEDS: ACETAMINOPHEN 325 MG TAB PO PRN (05:43)
[2025-07-17 09:45] LABS: ANTI-Xa, UFH(UnfractionatedHep 0.17 IU/ml (0.3-0.7)
[2025-07-17] MEDS: TAMSULOSIN HCL 0.4 MG CAP PO SCH (10:21)
[2025-07-17] MEDS: POTASSIUM CHLORIDE 10 MEQ TABCR PO SCH ×2 (10:26→10:27)
[2025-07-17] MEDS: FUROSEMIDE INJ 20 MG/2 ML VIAL IV ONE (10:26)
[2025-07-17 10:42] LABS: Anion Gap 4.0 (3-11); Blood Urea Nitrogen 18.0 mg/dl (6-23); Calcium 8.5 mg/dl (8.6-10.3); Carbon Dioxide 30.0 mmol/L (21-32); Chloride 102.0 mmol/L (98-107); Creatinine Clr Calc Pharmacy 96.9 ml/min; Glucose 151.0 mg/dl (70-99(Fasting)); Magnesium 2.0 mg/dl (1.7-2.4); Potassium 3.5 mmol/L (3.5-5.1); Sodium 136.0 mmol/L (136-145)
--- NOTE | 2025-07-17 11:02 | Urology Progress Note ---
Date of Service July 17, 2025 Assessment & Plan (1) Urinary retention due to benign prostatic hyperplasia: (2) Hydronephrosis: Plan Urinary retentionacute; left hydronephrosis with extension of the dilation down to the level of the bladder No right sided hydronephrosis CT and lab work all personally reviewed Creatinine is appropriate Primary reason for admission is secondary to A-fib and hypertension Discussed options for him long-term He could return to Dr. Guerrier but asked to transition to our practice Will plan to discharge him home with a catheter in place and follow-up with cystoscopy and voiding trial in 1 week Has been on alfuzosin, we should probably convert him to tamsulosin plus dutasteride to try to maximize his medication management starting DIMA His left-sided hydronephrosis extends to the level bladder implying that this may be related to his distention and reflux driven rather than a true obstructive cause, we can explore this further as an outpatient Discussed all of these options with him and he is very agreeable We will sign off, please call us if further issues arise during this hospitalization Admission and Anticipated Discharge Date Admission Date: July 16, 2025 Subjective Comfortable appearing today Reports that the catheter drastically improved his symptoms He is anxious to go home Has had some tachycardia and hypertension but has chronic A-fib as well as some chronic thyroid issuessuspect that his underlying acute bladder issues may have provoked an exacerbation of his chronic cardiac issues On further questioning he has been following with Dr. Carroll Guerrier for some time and has been on alfuzosin but no other BPH directed medications Physical Exam Physical Exam: Comfortable appearing Abdomen soft Urine clear No CVA tenderness in the left or right No suprapubic tenderness Results & Data Vital Signs (Past 12 Hours) Vital Signs Temp Pulse Pulse Resp BP BP Pulse Ox 07/17/25 10:13 118 H 144/101 H 07/17/25 07:33 112 H 149/81 H 07/17/25 05:35 114 H 18 155/88 H 07/17/25 02:57 36.6 C 117 H 18 150/88 H 97 07/17/25 02:04 77 07/17/25 01:28 118 H 130/80 07/16/25 23:14 36.6 C 112 H 18 129/80 96 O2 Del Method 07/17/25 10:13 07/17/25 07:33 07/17/25 05:35 07/17/25 02:57 Room Air 07/17/25 02:04 07/17/25 01:28 07/16/25 23:14 Room Air PG Care Time/CCT Total # of Minutes Spent Total Time Spent with Patient: Total time spent is greater than 50% in coordination of care (as documented) at patient's floor/unit and/or counseling patient: Coding Level of Care Code 48834 SUB INP/OBS CARE 2/35MIN Diagnoses Urinary retention due to benign prostatic hyperplasia N40.1; R33.8 Hydronephrosis N13.30
--- NOTE | 2025-07-17 11:14 | Cardiology Consultation ---
Date of Consultation July 17, 2025 Assessment & Plan (1) Atrial fibrillation with RVR: (2) Thyrotoxicosis due to Graves' disease: (3) Leg edema: (4) Hypokalemia: Plan Patient is a 75 year old with recent diagnosis of recurrent hyperthyroidism/Graves disease -started on methimazole as outpatient last week -Over the next few days worsening palpitations, fatigue, LE edema and urinary retention also noted. -Came to ER for evaluation Diagnosed with thyrotoxicosis/Graves disease, borderline thyroid storm -Endocrinology consulted - started on PTU -Transitioned from metoprolol to propranolol - currently receiving 20 mg every 2 hours Afib RVR - history of chronic/persistent afib -Elevated rates due to thyroid disorder and electrolyte imbalance -Supplement potassium for goal 4-5 -Magnesium acceptable -Continue propranolol for now per endocrine. Will likely transition back to metoprolol as thyroid dysfunction improves. -Resume low dose diltiazem 60 mg TID (home dose was 240 mg daily). This was held on admission due to LE edema and concerns for HF. Acceptable to resume at this time. -Echo with preserved LVEF, no significant valvular disease. Severe biatrial enlargement. No change from 2018 study -Patient has not been anticoagulated due to personal preference and prior "side effects" on Coumadin, Eliquis, and possibly pradaxa. -During admission he has been on IV heparin for stroke prophylaxis and DVT prophylaxis. LE edema likely due to afib RVR and urinary retention -symptoms improved with several doses of IV lasix -Not indicative of acute HF Urinary retention - history of BPH. -CT Scan with hydronephrosis -symptoms improved after mondragon placement -urology consulted Case discussed with Dr. Avendano I spent a total of 70 minutes on the date of service in preparation, delivery, and documentation of the care provided to this patient, excluding any time spent in the performance of separately billed services. Vonda Thomas PA-C Department of Cardiology, [facility] This chart was completed in part utilizing Speech Voice Recognition Software. Grammatical errors, random word insertions, pronoun errors, and incomplete sentences are an occasional consequence of this system due to software limitations, ambient noise, and hardware issues. Any formal questions or concerns about the content, text, or information contained within the body of this dictation should be directly addressed to the provider for clarification. Supervising Physician Co-Signing Physician Notes I have personally performed a history and physical examination on the patient. I have reviewed the advance practitioner's documentation, and I agree with, and take responsibility for the plan of care. 75-year-old male presented to the emergency department due to lower extremity edema, urinary retention, and hyperthyroidism/ thyrotoxicosis with borderline thyroid storm. Atrial fibrillation with rapid ventricular response noted on admission. Outpatient metoprolol transitioned to propranolol 20 mg every 2 hours due to acute thyrotoxicosis. PTU ordered by endocrinology. Diltiazem initially placed on hold due to concerns regarding heart failure, and posssible reduced LV ejection fraction. Edema has significantly improved with placement of Mondragon catheter and IV furosemide. Repeat resting 2D transthoracic echocardiogram demonstrates preserved biventricular function with severe biatrial enlargement. Findings are similar to prior echocardiogram from 2018. Continue propranolol as per direction of endocrinology at this time. Transition back to metoprolol when thyroid issues are controlled. Restart short acting diltiazem cautiously, 60 mg 3 times daily to improve rate control (Outpatient dose diltiazem LA 240mg daily). Heart rate will improve with treatment of hyperthyroidism. Patient currently receiving IV heparin although he has declined long-term oral anticoagulation per review of outpatient notes. Readdress during hospitalization prior to discharge. Patient received 20 mg IV furosemide today. (Outpatient furosemide dose 20 mg daily). Postobstructive diuresis expected. Monitor fluid balance, daily weight, GFR, electrolytes. Mayank Avendano DO, [facility] I spent a total of 45 minutes on the date of service in preparation, delivery, and documentation of the care provided to this patient, excluding any time spent in the performance of separately billed services. History of Present Illness Reason for Consultation: Afib RVR in setting of Hyperthyroidism/Thyrotoxicosis; Requesting Physician: [facility] Goodwin Attending Physician: Dr. Avendano History of Present Illness Patient is a 75 year old male who presented to [facility] with complaints of LE edema, fatigue, urinary retention over the last 1-2 weeks. Patient was evaluated in outpatient clinic on 07/10 found to have low TSH and elevated T4. Started on methimazole. Also having urinary retention. UA unremarkable. Over the next few days patient developed worsening LE edema, weight gain of about 8 lbs. Worsening abdominal pain reported and he came to the ER for evaluation. In the ER, patient was found to have Afib RVR (afib was chronic). Elevated rates likely due to Thyrotoxicosis. Diltiazem and metoprolol held on admission in favor of propranolol. Started on PTU per endocrine Significant urinary retention noted with hydronephrosis. Mondragon placed with significant urine output. Urology consulted. Ongoing mondragon recommended and Flomax initiated. Due to LE edema, patient was started on IV lasix. Received 40 mg IV yesterday and 20 mg this morning. Good urine outputs now recorded. Interval improvement in his LE edema. Potassium low and this is supplemented. No orthopnea, PND. No SOB. No chest pain. He is relatively asymptomatic wiht th e afib. Mildly elevated rates. Taking propranolol 20 mg every 2 hours. History includes: 1. chronic afib dating back many years. Followed by Dr. Gonzales. Trials of anticoagulation with resultant "side effects" of medications. Patient declining oral anticoagulants. Understanding of stroke risks in the past 2. history of hyperthyroidism/graves disease (thought to be in remission and stopped methimazole years ago) 3. BPH 4. Dyslipidemia 5. Hereditary hemochromatosis with frequent phlebotomy 6. History of MS Allergies Allergy/AdvReac Type Severity Reaction Status Date / Time No Known Allergies Allergy Unverified 02/08/11 09:33 Home Medications Medication Instructions Recorded Confirmed Type alfuzosin 10 mg tablet,extended 10 mg PO HS 03/23/21 07/16/25 History release 24 hr (Uroxatral) diltiazem HCl 240 mg 240 mg PO HS 03/23/21 07/16/25 History capsule,extended release 24 hr metoprolol succinate 50 mg 50 mg PO BID 03/23/21 07/16/25 History tablet,extended release 24 hr furosemide 20 mg tablet 20 mg PO DAILY 07/16/25 07/16/25 History methimazole 10 mg tablet 10 mg PO BID 07/16/25 07/16/25 History potassium chloride 10 mEq 10 meq PO DAILY 07/16/25 07/16/25 History capsule,extended release tadalafil 5 mg tablet 5 mg PO UD 07/16/25 07/16/25 History Patient History Medical History History of multiple sclerosis BPH (benign prostatic hyperplasia) Chronic atrial fibrillation Hereditary hemochromatosis Greater trochanteric bursitis of right hip Tendinitis of left rotator cuff Surgical History History of repair of rotator cuff History of total left hip arthroplasty History of total right hip arthroplasty Family History (Updated 07/16/25 @ 15:14 by Berenice Guerra PA-C) Other Familial hemochromatosis Social History Smoking Status: Never smoker Second Hand Exposure: No; Hx Alcohol Use: Yes Alcohol type: wine Hx Substance Use: No Preferred Language: Khmer Communication Ability: Effective Designated Broker Required: No Beliefs That Will Affect Care: None Current Living Situation: Spouse Other Information That Helps Us Care for You: No Feels Safe at Home: Yes Safety Concerns: Feels Safe At This Time Assistive Devices: None Review of Systems Review of Systems: All systems reviewed & are unremarkable except as noted in HPI & below Physical Exam Constitutional: WD/WN, vitals as above well developed; no acute distress Neck: normal visual inspection Respiratory: normal respiratory effort; no labored breathing Auscultation: lungs clear to auscultation bilaterally Cardiovascular: Rate/Rhythm: + tachycardic and + irregularly irregular Heart Sounds: no murmur Vessels: no JVD Extremities: + edema (trace pretibial edema b/l ) Gastrointestinal (Abdomen): normal bowel sounds, soft, nontender, no hepatosplenomegaly Neurologic: PERRL, EOMI, accommodation nl, no face palsy, no dysarthria Psychiatric: A+Ox3, euthymic affect Results & Data Vital Signs (Past 12 Hours) Vital Signs Temp Pulse Pulse Resp BP BP Pulse Ox 07/17/25 10:13 118 H 144/101 H 07/17/25 07:33 112 H 149/81 H 07/17/25 05:35 114 H 18 155/88 H 07/17/25 02:57 36.6 C 117 H 18 150/88 H 97 07/17/25 02:04 77 07/17/25 01:28 118 H 130/80 07/16/25 23:14 36.6 C 112 H 18 129/80 96 O2 Del Method 07/17/25 10:13 07/17/25 07:33 07/17/25 05:35 07/17/25 02:57 Room Air 07/17/25 02:04 07/17/25 01:28 07/16/25 23:14 Room Air Laboratory Results Cardiac Enzymes 07/16/25 07/16/25 07/17/25 Range/Units 10:45 19:49 01:30 AST 16 14 (13-39) U/L Troponin I High Sens 10.6 8.2 (0-20) pg/ml B-Natriuretic Peptide 297 H (0-100) pg/ml Coagulation 07/16/25 Range/Units 10:45 PT 11.4 (9.0-12.0) Seconds APTT 28 (21-31) Seconds B-Natriuretic Peptide 297 H (0-100) pg/ml CBC 07/16/25 07/17/25 Range/Units 10:45 01:30 WBC 6.04 5.46 (4.8-10.8) K/ul RBC 3.73 L 3.52 L (4.70-6.10) M/uL Hgb 12.3 L 11.1 L (14.0-18.0) g/dl Hct 33.1 L 31.0 L (42.0-52.0) % Plt Count 242 218 (130-400) K/uL Neut # (Auto) 4.59 3.38 (1.40-6.50) K/uL Lymph # (Auto) 0.66 L 1.19 L (1.20-3.40) K/uL Randolph # (Auto) 0.71 H 0.82 H (0.11-0.59) K/uL Eos # (Auto) 0.04 0.04 (0.00-0.50) K/uL Baso # (Auto) 0.02 0.02 (0.00-0.20) K/uL Comprehensive Metabolic Panel 07/16/25 07/17/25 07/17/25 Range/Units 10:45 01:30 10:00 Sodium 135 L 138 136 (136-145) mmol/L Potassium 3.4 L 3.2 L 3.5 (3.5-5.1) mmol/L Chloride 100 101 102 (98-107) mmol/L Carbon Dioxide 27 29 30 (21-32) mmol/L BUN 18 17 18 (6-23) mg/dl Creatinine 0.56 L 0.63 0.68 (0.6-1.4) mg/dl Glucose 136 H 122 H 151 H (70-99(Fasting)) mg/dl Calcium 9.2 8.7 8.5 L (8.6-10.3) mg/dl AST 16 14 (13-39) U/L ALT 15 13 (7-52) U/L Alkaline Phosphatase 57 54 (34-104) U/L Total Protein 6.4 5.5 L (6.0-8.3) gm/dl Albumin 3.7 3.2 L (3.4-5.0) gm/dl Intake and Output 07/16/25 07/17/25 07/17/25 22:59 06:59 14:59 Intake Total 500 / 748.517 248.517 / 748.517 98.633 / 98.633 Output Total 1000 / 1425 425 / 1425 Balance -500 / -676.483 -176.483 / -676.483 98.633 / 98.633 Intake: IV 250 / 498.517 248.517 / 498.517 98.633 / 98.633 Heparin 27170 Unit/500 ml D5w 148.517 / 148.517 98.633 / 98.633 25,000 units In 500 ml @ 1,100 UNITS/HR 22 mls/hr IV .[id number] [facility] Rx#:[id number] Magnesium Sulfate / D5w 1 gm In 100 / 100 100 ml @ 50 mls/hr IV ONE ONE Rx#:[id number] Potassium Chloride / Wtr 10 meq 200 / 200 In 100 ml @ 100 mls/hr IV Q1H [facility] Rx#:[id number] cefTRIAXone SODIUM 2,000 mg In 50 / 50 50 ml @ 100 mls/hr IV Q24H [facility] Rx#:[id number] Oral 250 / 250 Output: Urine Amount (Catheter) 1000 / 1425 425 / 1425 Mondragon/Indwelling 1000 / 1425 425 / 1425 Other: Weight 84 kg 82.3 kg Weight Measurement Method Chair Scale Standing Scale Diagnostic Findings Telemetry reviewed: Afib with mildly elevated rates ranging 100-120 EKG reviewed on admission: Afib RVR at 117 bmp LAD Low voltage QRS Repeat EKG Afib RVR LAD Low voltage QRS No change from previous Echo report reviewed from yesterday 07/16/25: -Normal LVEF at 60-65% -Mild concentric LVH -Severe biatrial enlargement -Mild TR Mild MR compared with prior echo in 2018 - no significant changes noted Abdomen/Pelvis CT 07/16/25 13:21 CT SCAN OF THE ABDOMEN AND PELVIS WITH IV CONTRAST CLINICAL HISTORY: Lower abdominal pain. COMPARISON STUDY: Abdominal CT scans dated 12/22/2016 and 11/14/2008. TECHNIQUE: Following the IV administration of 119 cc of Optiray 320, CT scan of the abdomen and pelvis is performed from the lung bases to the proximal femora. Images are reviewed in the axial, sagittal, and coronal planes. IV contrast was administered without complication. A dose lowering technique was utilized adhering to the principles of ALARA. FINDINGS: Lung bases: The heart is markedly enlarged noting a small pericardial effusion. There is bibasilar scarring/atelectasis. No airspace consolidation or pleural effusion is identified. Liver: The contrast-enhanced liver is normal in size, contour, and attenuation. There is no intrahepatic biliary ductal dilatation. The hepatic veins and portal veins are patent. Gallbladder: Surgically absent noting clips in the gallbladder fossa. Spleen: Normal in size and attenuation. Pancreas: Mild atrophic and grossly unremarkable. Adrenal glands: Nonspecific thickening of the adrenal glands is similar to previous. Kidneys: The contrast enhanced kidneys are normal in size. There is moderate to severe left hydroureteronephrosis. There is associated left-sided perinephric stranding and trace fluid. The uterus dilated to the level of the bladder with no obstructing stone or lesion clearly seen. No hydronephrosis is seen on the right. The kidneys enhance symmetrically. A retroaortic left renal vein is incidentally noted. Abdominal vasculature: There is moderate atherosclerotic calcification and ectasia of the abdominal aorta. Bowel: There is moderate colonic diverticulosis without CT evidence of acute diverticulitis. No bowel obstruction is seen. The appendix is not visualized. Peritoneum: There is no intraperitoneal free air or abdominal ascites. There is a fat-containing umbilical hernia. Lymphadenopathy: None. Pelvic viscera: Evaluation of the pelvis is degraded by streak artifact from bilateral hip arthroplasties. The prostate gland is enlarged and heterogeneous. The bladder is distended, and the wall appears thickened/trabeculated indicating chronic outlet obstruction. There are large bladder diverticula. There are bilateral fat-containing groin hernias. Skeletal structures: The skeletal structures are osteopenic. There is moderate lumbosacral spondylosis. No lytic or blastic lesions are seen. Bilateral hip arthroplasties are in place. There is a large amount of bursal fluid around the right hip. IMPRESSION: 1. There is moderate to severe left hydroureteronephrosis, with the left ureter dilated to the level of the bladder. No obstructing stone or lesion is seen by CT, and this is new from 12/22/2016. There is associated left-sided perinephric stranding and trace fluid. Follow up with urology is recommended. 2. There is no hydronephrosis on the right. 3. Prostatomegaly with significant bladder distention and evidence of chronic bladder outlet obstruction. 4. Colonic diverticulosis without CT evidence of acute diverticulitis. 5. Marked cardiomegaly. 6. Additional findings as above. ACT 112: Negative or not required by law. Electronically signed by: Luan Jiménez M.D. 07/16/2025 3:20 PM Chest CTA 07/16/25 13:21 CT ANGIOGRAM OF THE CHEST CLINICAL HISTORY: Fever. Chills. Evaluate for pulmonary embolus. COMPARISON STUDY: Chest CT February 08, 2011. TECHNIQUE: Following the IV administration of 119 cc of Optiray 320, CT angiogram of the chest was performed from the upper abdomen to the thoracic inlet utilizing the pulmonary embolus protocol. Images are reviewed in the axial, sagittal, and coronal planes. 3-D MIPS images are created and assessed. IV contrast was administered without complication. A dose lowering technique was utilized adhering to the principles of ALARA. CT DOSE: 2027.58 mGy.cm FINDINGS: No pulmonary emboli are identified. There is no thoracic aortic dissection. The heart is moderately enlarged. There is no pericardial effusion. There is no thoracic lymphadenopathy. There is no pneumothorax. Trace left p leural fluid is noted. There is no significant pleural effusion. No consolidation is identified suggest pneumonia. Linear densities within lungs represent scarring or atelectasis. The central airways are patent. Abdomen and pelvis CT will be reported separately. IMPRESSION: 1. No pulmonary emboli identified. 2. No acute intrathoracic findings. 3. Moderate cardiomegaly. ACT 112: Negative or not required by law. Electronically signed by: Sarath Foster M.D. 07/16/2025 2:54 PM Venous Doppler Study 07/16/25 13:21 Examination: Doppler venous ultrasound of the lower extremity Comparison: None Technique: Grayscale evaluation with compression, spectral flow, and color Doppler assessment of the deep venous system of the leg, from the groin to the knee, as well as the lower leg Findings: The external iliac, common femoral, femoral, popliteal, peroneal and anterior and posterior tibial veins demonstrate normal compressibility and blood flow. Impression: No evidence for DVT of the bilateral lower extremity Electronically signed by Jordan Waterman 07-16-2025 6:44 PM Medications Administered Current Inpatient Medications Acetaminophen (Acetaminophen 325 Mg Tab) 650 mg PO Q4H PRN PRN Reason: Pain or Fever Stop: 08/15/25 18:10 Last Admin: 07/17/25 05:43 Dose: 650 mg Diltiazem HCl (Diltiazem Hcl 60 Mg Tab) 60 mg PO TID [facility] Stop: 08/16/25 10:29 Last Admin: 07/17/25 10:48 Dose: 60 mg Ceftriaxone Sodium (Rocephin) 2,000 mg in 50 mls @ 100 mls/hr IV Q24H MARTHA Stop: 07/23/25 17:59 Last Infusion: 07/16/25 19:14 Dose: Infused Heparin Sodium/Dextrose (Heparin 59183 Unit/500 Ml D5w) 25,000 units in 500 mls @ 22 mls/hr IV .[id number] [facility]; Protocol Stop: 08/15/25 18:14 Last Titration: 07/17/25 07:15 Dose: 1,100 units/hr, 22 mls/hr Melatonin (Melatonin 3 Mg Tab) 3 mg PO HS PRN PRN Reason: Sleep Stop: 08/15/25 18:10 Ondansetron HCl (Ondansetron Inj 2 Mg/Ml 2 Ml Vial) 4 mg IV Q6H PRN PRN Reason: Nausea Stop: 08/15/25 18:10 Last Admin: 07/16/25 20:50 Dose: 4 mg Polyethylene Glycol (Polyethylene (Miralax) 17 Gm Pack) 17 gm PO DAILY PRN PRN Reason: Constipation Stop: 08/15/25 18:10 Potassium Chloride (Potassium Chloride 10 Meq Tabcr) 40 meq PO DAILY MARTHA Stop: 08/16/25 09:44 Last Admin: 07/17/25 10:26 Dose: 40 meq Propranolol HCl (Propranolol Hcl 20 Mg Tab) 20 mg PO Q2H MARTHA Stop: 08/15/25 14:59 Last Admin: 07/17/25 10:19 Dose: 20 mg Propylthiouracil (Propylthiouracil 50 Mg Tab) 200 mg PO Q6H MARTHA Stop: 08/15/25 14:59 Last Admin: 07/17/25 10:20 Dose: 200 mg Tamsulosin HCl (Tamsulosin Hcl 0.4 Mg Cap) 0.4 mg PO QAM MARTHA Stop: 08/16/25 08:59 Last Admin: 07/17/25 10:21 Dose: 0.4 mg Tamsulosin HCl (Tamsulosin Hcl 0.4 Mg Cap) 0.4 mg PO HS MARTHA Stop: 08/15/25 20:59 Last Admin: 07/16/25 20:49 Dose: 0.4 mg PG Care Time/CCT Total # of Minutes Spent Total Time Spent with Patient: Total time spent is greater than 50% in coordination of care (as documented) at patient's floor/unit and/or counseling patient: 70 Coding Level of Care Code 66711 INT INP/OBS CARE 3/75MIN Diagnoses Atrial fibrillation with RVR I48.91 Thyrotoxicosis due to Graves' disease E05.00 Leg edema R60.0 Hypokalemia E87.6
[2025-07-17] MEDS: ENOXAPARIN INJ 40 MG/0.4 ML SYR SQ SCH (13:14)
[2025-07-17] MEDS: FINASTERIDE 5 MG TAB PO SCH (13:14)
--- NOTE | 2025-07-17 13:19 | Hospitalist Progress Note ---
Date of Service July 17, 2025 Assessment & Plan (1) Thyrotoxicosis due to Graves' disease: (2) Atrial fibrillation with RVR: (3) Acute heart failure with preserved ejection fraction (HFpEF, >= 50%): (4) Urinary retention due to benign prostatic hyperplasia: (5) Hydronephrosis due to obstruction of bladder: (6) Multiple sclerosis: (7) Chronic atrial fibrillation: (8) Hypokalemia: (9) Hereditary hemochromatosis: Plan Patient 75-year-old gentleman with chronic atrial fibrillation now with rapid ventricular sponsor due to thyrotoxicosis due to recurrent Graves' disease Continue every 2 hour propranolol, rates becoming better controlled Restart short acting Cardizem for better rate control per cardiology recommendations Continue PTU treatment as recommended by endocrinology Potassium has been replaced, continue to replace as needed and monitor electrolyte levels Communication with urology, no evidence of kidney infection, can discontinue antibiotics. Maintain Hernandez catheter. Anticipate discharge with Hernandez catheter and outpatient urology appointment and voiding trial. Informed patient to anticipate going home with Hernandez catheter Continue twice daily Flomax, add Proscar for his BPH Patient was not on any anticoagulation for his atrial fibrillation prior to admission. 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 He states that he was willing to accept the risk of stroke. He also apparently has not tolerated warfarin or DOAC's. At this point with Hernandez catheter in place risk of bleeding may outweigh the benefits. He would not continue anticoagulation upon discharge. Therefore we will discontinue the IV heparin. Put him on VTE prophylaxis Lovenox while the patient is in the hospital. Give additional dose of IV Lasix today, anticipate will not need any further diuretics. Now that his bladder obstruction is relieved anticipate that we will help with his swelling as well. Reviewed echocardiogram, preserved ejection fraction. Do suspect patient had some acute heart failure on presentation due to his rapid ventricular response associated with atrial fibrillation and exacerbated by his urinary retention. Admission and Anticipated Discharge Date Admission Date: July 16, 2025 Subjective Patient feeling significantly improved. Denies any chest pain or shortness of breath. Has responded well to the light Lasix. Reports his swelling is significantly improved. Physical Exam Physical Exam: Constitutional: Alert, nontoxic in appearance HEENT: Mucous membranes moist. Lungs: Clear to auscultation, decreased, no wheezes rales or rhonchi CV: S1-S2, irregular, tachycardic Abdomen: Soft, nontender, nondistended Extremities: 1+ pretibial edema, skin is loose and wrinkly, Neuro: No focal deficits Psych: Cooperative, normal mood Results & Data Results & Data Vital Signs (Past 12 Hours) Vital Signs Temp Pulse Pulse Resp BP BP Pulse Ox 07/17/25 13:05 125 H 111/75 07/17/25 10:59 36.4 C L 101 H 20 129/91 96 07/17/25 10:13 118 H 144/101 H 07/17/25 07:33 112 H 149/81 H 07/17/25 05:35 114 H 18 155/88 H 07/17/25 02:57 36.6 C 117 H 18 150/88 H 97 07/17/25 02:04 77 07/17/25 01:28 118 H 130/80 O2 Del Method 07/17/25 13:05 07/17/25 10:59 Room Air 07/17/25 10:13 07/17/25 07:33 07/17/25 05:35 07/17/25 02:57 Room Air 07/17/25 02:04 07/17/25 01:28 Diagnostic Findings Reviewed imaging, laboratory and diagnostic studies. Pertinent findings as below. WBCs 5.4 Hemoglobin 11.1 Platelets of 218 Potassium 3.5, improved Creatinine 0.68 Magnesium 2.0
[2025-07-17] MEDS: POTASSIUM CHLORIDE CRTAB 20 MEQ TABCR PO ONE (17:37)
[2025-07-17] MEDS: MELATONIN 3 MG TAB PO PRN (21:12)
[2025-07-18 05:52] LABS: Hematocrit (blood only) 32.9 % (42.0-52.0); Hemoglobin 12.1 g/dl (14.0-18.0); Mean Corpuscular Hemoglobin 32.9 pg (25.0-34.0); Mean Corpuscular Volume 89.4 fL (80.0-100.0); Platelet Count 225 K/uL (130-400); RDW Standard Deviation 37.3 fL (36.4-46.3); Red Blood Count 3.68 M/uL (4.70-6.10); White Blood Count 5.67 K/ul (4.8-10.8)
[2025-07-18 06:07] LABS: Anion Gap 5.0 (3-11); Blood Urea Nitrogen 21.0 mg/dl (6-23); Calcium 8.7 mg/dl (8.6-10.3); Carbon Dioxide 29.0 mmol/L (21-32); Chloride 103.0 mmol/L (98-107); Creatinine Clr Calc Pharmacy 104.6 ml/min; Glucose 125.0 mg/dl (70-99(Fasting)); Magnesium 1.9 mg/dl (1.7-2.4); Potassium 3.7 mmol/L (3.5-5.1); Sodium 137.0 mmol/L (136-145)
[2025-07-18] MEDS: PROPRANOLOL HCL 20 MG TAB PO SCH (09:56)
--- NOTE | 2025-07-18 11:22 | Hospitalist Progress Note ---
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 Transition to 3 times daily propranolol Continue Cardizem Continue to monitor heart rates with these medication adjustments Edema essentially resolved, no additional diuretics today Activity as tolerated Continue PTU will transition to methimazole at discharge Maintain Hernandez catheter, will be discharged with Hernandez and follow-up with urology outpatient tolerating tamsulosin and Proscar Anticipate if rates remain controlled can anticipate discharge tomorrow Admission and Anticipated Discharge Date Admission Date: July 16, 2025 Subjective Patient feeling significantly improved. No chest pain or shortness of breath. Physical Exam Physical Exam: Constitutional: Alert, nontoxic HEENT: Mucous membranes moist. Lungs: Clear to auscultation, decreased, no wheezes rales or rhonchi CV: S1-S2, irregular, slightly tachycardic Abdomen: Soft, nontender, nondistended Extremities: Trace pretibial edema Neuro: No focal deficits Psych: Cooperative, normal mood Results & Data Results & Data Vital Signs (Past 12 Hours) Vital Signs Temp Pulse Resp BP BP Pulse Ox O2 Del Method 07/18/25 09:55 120 H 154/94 H 07/18/25 07:22 36.8 C 95 H 20 138/89 96 Room Air 07/18/25 03:06 36.8 C 112 H 18 128/72 95 Room Air Diagnostic Findings Reviewed imaging, laboratory and diagnostic studies. Pertinent findings as bel ow. CBC stable Electrolytes stable Creatinine 0.63
--- NOTE | 2025-07-18 11:24 | Cardiology Progress Note ---
Date of Service July 18, 2025 Assessment & Plan (1) Atrial fibrillation with RVR: (2) Thyrotoxicosis due to Graves' disease: (3) Leg edema: (4) Hypokalemia: Plan 75-year-old male with acute thyrotoxicosis, volume overload due to obstructive uropathy, and chronic atrial fibrillation with rapid ventricular response. Heart rate improved overnight. Volume status significantly improved with placement of Hernandez catheter and gentle diuresis. Increase diltiazem to 60 mg every 6 hours. Transition back to diltiazem LA 240 mg daily at discharge. Continue propranolol as per direction of endocrinology. Transition back to metoprolol when thyroid issues are controlled. Patient with documented intolerance of multiple oral anticoagulants in the outpatient setting. Declines long-term anticoagulation at this time. Hold additional diuretic therapy at this time. Low-dose Lasix was added as outpatient recently, 07/14/2025 due to edema. Monitor fluid balance, daily weight, GFR, electrolytes. Mayank Avendano DO, [facility] Admission and Anticipated Discharge Date Admission Date: July 16, 2025 Subjective 75-year-old male seen examined at bedside. Edema markedly improved with gentle diuresis. Heart rate trending downward. Feeling well from a cardiovascular perspective. Denies palpitations or lightheadedness. No chest discomfort or s hortness of breath. Some reveals atrial fibrillation heart rate 100-120 bpm. Propranolol transition to 80 mg every 8 hours per endocrinology. Review of Systems Review of Systems: All systems reviewed & are unremarkable except as noted in Subjective Physical Exam Constitutional: well nourished; no acute distress Respiratory: no respiratory distress and no labored breathing Auscultation: no crackles, no rales, no rhonchi and no wheezes Cardiovascular: Rate/Rhythm: + tachycardic and + irregularly irregular Heart Sounds: normal S1 and normal S2; no murmur Vessels: no JVD Extremities: + edema (Trace bilateral ankle edema) Gastrointestinal (Abdomen): Inspection/Auscultation: abdomen normal to inspection and normal bowel sounds; abdomen not distended Results & Data Vital Signs (Past 12 Hours) Vital Signs Temp Pulse Resp BP BP Pulse Ox O2 Del Method 07/18/25 09:55 120 H 154/94 H 07/18/25 07:22 36.8 C 95 H 20 138/89 96 Room Air 07/18/25 03:06 36.8 C 112 H 18 128/72 95 Room Air Laboratory Results CBC 07/18/25 Range/Units 05:19 WBC 5.67 (4.8-10.8) K/ul RBC 3.68 L (4.70-6.10) M/uL Hgb 12.1 L (14.0-18.0) g/dl Hct 32.9 L (42.0-52.0) % Plt Count 225 (130-400) K/uL Comprehensive Metabolic Panel 07/18/25 Range/Units 05:19 Sodium 137 (136-145) mmol/L Potassium 3.7 (3.5-5.1) mmol/L Chloride 103 (98-107) mmol/L Carbon Dioxide 29 (21-32) mmol/L BUN 21 (6-23) mg/dl Creatinine 0.63 (0.6-1.4) mg/dl Glucose 125 H (70-99(Fasting)) mg/dl Calcium 8.7 (8.6-10.3) mg/dl Intake and Output 07/17/25 07/18/25 07/18/25 22:59 06:59 14:59 Intake Total 300 / 1812.833 250 / 1812.833 Output Total 300 / 3325 275 / 3325 Balance 0 / -1512.167 -25 / -1512.167 Intake: Oral 300 / 1580 250 / 1580 Output: Urine Amount (Catheter) 300 / 3325 275 / 3325 Hernandez/Indwelling 300 / 3325 275 / 3325 Other: Weight 83 kg Weight Measurement Method Built in [facility] Care Time/CCT Total # of Minutes Spent Total Time Spent with Patient: Total time spent is greater than 50% in coordination of care (as documented) at patient's floor/unit and/or counseling patient: Coding Level of Care Code 31358 SUB INP/OBS CARE 3/50MIN Diagnoses Atrial fibrillation with RVR I48.91 Thyrotoxicosis due to Graves' disease E05.00 Leg edema R60.0 Hypokalemia E87.6
--- NOTE | 2025-07-18 16:23 | Electrocardiogram Report ---
Test Reason : Blood Pressure : */* mmHG Vent. Rate : 106 BPM Atrial Rate : * BPM P-R Int : * ms QRS Dur : 90 ms QT Int : 334 ms P-R-T Axes : * -35 23 degrees QTcB Int : 443 ms Atrial fibrillation with rapid ventricular response Left axis deviation Low voltage QRS Inferior infarct (cited on or before 16-Jul-2025) Cannot rule out Anterior infarct (cited on or before 16-Jul-2025) Abnormal ECG When compared with ECG of 16-Jul-2025 11:18, (unconfirmed) No significant change was found Confirmed by Navjot Romeo ([id number]) on 07/18/2025 4:23:34 PM Referred By: REFERRED SELF Confirmed By: Navjot Romeo
[2025-07-18 19:37] VITALS: RESP 16
[2025-07-19 07:29] VITALS: BP 142/74; TEMP 98.2; O2SAT 95
[2025-07-19] MEDS: PROPRANOLOL HCL 20 MG TAB PO SCH (08:45)
[2025-07-19 09:06] VITALS: PULSE 98
--- NOTE | 2025-07-19 10:03 | Discharge Summary ---
Discharge Summary Date of Service July 19, 2025 Principal Dx & Hospital Course #1 = Principal Diagnosis (1) Thyrotoxicosis due to Graves' disease: (2) Atrial fibrillation with RVR: (3) Acute heart failure with preserved ejection fraction (HFpEF, >= 50%): (4) Urinary retention due to benign prostatic hyperplasia: (5) Hydronephrosis due to obstruction of bladder: (6) Multiple sclerosis: (7) Chronic atrial fibrillation: (8) Hypokalemia: (9) Hereditary hemochromatosis: Plan Patient 75-year-old gentleman with previous history of Graves' disease which has been in remission for multiple years presented to the emergency room with tachycardia, palpitations, leg swelling and outpatient labs consistent with reoccurrence of his hyperthyroidism. In the emergency room EKG revealed atrial fibrillation with rapid ventricular response. Patient has chronic atrial fibrillation but is usually well-controlled. Other laboratory studies consistent with thyroid toxicity. Clinical exam is noted to be volume overloaded most likely due to his rapid rates. Patient was referred for admission. Admitted to the monitored setting. Endocrinology was contacted via phone who recommended rate control with propranolol. Treating the hyperthyroidism with PTU. Cardiology consultation was obtained. They continue to rate control with propranolol. He was restarted on his oral Cardizem. Echocardiogram was performed which showed a normal ejection fraction. He was given some IV Lasix for diuresis and he responded to this well. They his volume overload and heart failure preserved ejection fraction most likely due to his rapid ventricular response and is hypothyroidism. As the patient progressed through his hospitalization his heart rates became better controlled. He was transition to long-acting Cardizem. His frequency of propranolol was decreased. On the day of discharge he was feeling well. He had no significant edema. His heart rates were overall well-controlled. Also at the time of admission the patient was having significant issues with urinary retention. This was due to BPH. Hernandez catheter was placed. Urology consultation was obtained who recommended medical treatment and maintaining the Hernandez catheter even at the time of discharge and following up with them in outpatient setting for a voiding trial. He was given instructions on Hernandez care. He will be discharged home to follow-up with endocrinology, urology, cardiology and his PCP. During his hospitalization also had conversation with anticoagulation in the setting of his atrial fibrillation. He has had this conversation multiple times with his outpatient team and is ultimately has decided not to be on any anticoagulation and excepting those risks. Apparently, in the past he has not tolerated any of the anticoagulation medications. Notes For Next Care Provider Will need ongoing outpatient follow-up with various specialists Medication Changes From Visit Propranolol 3 times a day Methimazole increased to 20 mg twice a day Admission HPI Per Admitting Provider This is a 75-year-old male with PMH of chronic atrial fibrillation (not on anticoagulation), hyperthyroidism with history of Graves disease, hereditary hemochromatosis, hyperlipidemia, BPH, history of multiple sclerosis and other medical problems listed below who presents with progressive swelling of lower extremities over the past week as well as suprapubic pain. History obtained from patient and extensive chart review. Was seen in the outpatient clinic a week ago for lower extremity swelling and fatigue, found to have abnormal thyroid function test consistent with hyperthyroidism. Has history of Graves disease and was treated with methimazole years ago but then felt to be in remission. Last had TFTs checked in December 2024 and they were WNL. On 07/10 in clinic, TSH 0.02 and free T4 4.0. Ask a doc Endo was consulted on 07/10, who recommended repeat thyroid labs in 2 weeks but due to persistent symptoms, patient was seen again in clinic on 07/12 and TSH <0.01 and free T4 7.8 at that time. Methimazole 10 mg BID was started. Was also noted to have worsening BLE edema. CXR unremarkable and no respiratory symptoms. Started on Lasix 20mg PO and Kcl 10meq daily at that time. Presents to ED today with ongoing BLE edema, estimating 8-10 lb weight gain in the past 2 weeks. No palpitations or chest pain. Has chronic A fib which is asymptomatic, per patient. No fever or chills. No confusion, lightheadedness. Having suprapubic pain and feels like he cannot fully empty bladder. UA done in clinic 07/12 was unremarkable. Frequent bowel movements but denies diarrhea. Last echo showed preserved EF of 60% in July 2018. Was scheduled for outpatient echo 07/24. Follows with Dr. Gonzales of cardiology for history of atrial fibrillation. Was previously on coumadin years ago but "did not tolerate it well". Was then on Eliquis but in 2022, developed numbness and tingling of hands with occasional dizziness, which he attributed to Eliquis. Symptoms resolved after he discontinued. Is not on anticoagulation. Follows with yunielonc for hereditary hemochromatosis-last therapeutic phlebotomy was done on 07/08.Has CBC and ferritin monitored monthly (with goal ferritin of <100) and follows a low iron diet, instructed to minimize alcohol intake. Admission Exam Per Admitting Provider See H&P Discharge Exam Constitutional: Alert HEENT: Mucous membranes moist. Lungs: Clear to auscultation, decreased, no wheezes rales or rhonchi CV: S1-S2, irregular, rate controlled Abdomen: Soft, nontender, nondistended Extremities: Trace pretibial edema right greater than left Neuro: No focal deficits Psych: Cooperative, normal mood Updated Medication List Medication Instructions Recorded Confirmed Type alfuzosin 10 mg tablet,extended 10 mg PO HS 03/23/21 07/16/25 History release 24 hr (Uroxatral) diltiazem HCl 240 mg 240 mg PO HS 03/23/21 07/16/25 History capsule,extended release 24 hr metoprolol succinate 50 mg 50 mg PO BID 03/23/21 07/16/25 History tablet,extended release 24 hr furosemide 20 mg tablet 20 mg PO DAILY 07/16/25 07/16/25 History potassium chloride 10 mEq 10 meq PO DAILY 07/16/25 07/16/25 History capsule,extended release tadalafil 5 mg tablet 5 mg PO UD 07/16/25 07/16/25 History finasteride 5 mg tablet 5 mg PO QAM #30 tabs 07/19/25 Rx methimazole 10 mg tablet 20 mg (2 x 10 mg) PO BID #120 tabs 07/19/25 Rx propranolol 80 mg tablet 120 mg (1.5 x 80 mg) PO TID 30 07/19/25 Rx days #135 tabs tamsulosin 0.4 mg capsule 0.4 mg PO BID #60 caps 07/19/25 Rx Hospital Stay Data Consultations 07/16/25 14:00 ED Decision to Admit Stat 07/16/25 14:25 Consult Cardiology Routine 07/16/25 15:47 Consult Urology Routine Diagnostic Imagining Performed 07/16/25 13:21 CT abd pelvis IV con only Stat CT angio chest PE protocol Stat US venous doppler LE BI Stat Reviewed imaging, laboratory and diagnostic studies. Pertinent findings as below. Ultrasound lower extremity negative for DVT CT of the chest negative for PE Echocardiogram ejection fraction of showed 60 to 65%, severe biatrial enlargement, no significant change from previous WBCs 5.6 Hemoglobin 12.1 Electrolytes within normal range Creatinine 0.63 TSH less than 0.01 Free T4 5.88 Blood cultures no growth at 48 hours Pending Results Patient Have Any Pending Studies at Discharge: No Discharge Instructions Given to Patient (Per Discharging Provider) You will continue with the Hernandez catheter until removed by urology. Follow-up with endocrinology as scheduled Follow-up with cardiology as scheduled Total Time Total Time Spent Total Time Spent (In Minutes): 35
--- NOTE | 2025-07-19 11:23 | Cardiology Progress Note ---
Date of Service July 19, 2025 Assessment & Plan (1) Atrial fibrillation with RVR: (2) Thyrotoxicosis due to Graves' disease: (3) Leg edema: (4) Hypokalemia: Plan 75-year-old male with acute thyrotoxicosis, volume overload due to obstructive uropathy, and chronic atrial fibrillation with rapid ventricular response secondary to acute thyroid disorder. -Heart rates continued to improve. -Home dose diltiazem 240 mg daily resumed this morning -Patient had been on propranolol during admission, and will be transitioned back to oral metoprolol upon discharge. -There is some confusion whether patient was taking Lopressor or metoprolol succinate at home. Recommend metoprolol succinate 50 mg BID on discharge. - Volume status significantly improved with placement of Hernandez catheter and gentle diuresis. Continue furosemide 20 mg daily on discharge. -He continues to declines long-term anticoagulation at this time, having had previous side effects. It does not appear he had trial of Xarelto and this can be re-discussed in the future. Stable for discharge from cardiac perspective. Will arrange 2-4 week f/u in the [facility] office to re-evaluate HR and volume status Case discussed with Dr. Salas I spent a total of 35 minutes on the date of service in preparation, delivery, and documentation of the care provided to this patient, excluding any time spent in the performance of separately billed services. Vonda Thomas PA-C Department of Cardiology, [facility] This chart was completed in part utilizing Speech Voice Recognition Software. Grammatical errors, random word insertions, pronoun errors, and incomplete sentences are an occasional consequence of this system due to software limitations, ambient noise, and hardware issues. Any formal questions or concerns about the content, text, or information contained within the body of this dictation should be directly addressed to the provider for clarification. Admission and Anticipated Discharge Date Admission Date: July 16, 2025 Supervising Physician Co-Signing Physician Notes Case discussed with Vonda Thomas PA-C. Unfortunately, patient discharged prior to me having the opportunity to examine him in person. Agree with findings and plan as outlined by Vonda Thomas PA-C. Rj Salas, DO Subjective Patient resting comfortably in bed. No complaints. He was already told about discharge today. No palpitations, dizziness, CP or SOB. Edema improved Review of Systems Review of Systems: All systems reviewed & are unremarkable except as noted in HPI & below Physical Exam Constitutional: WD/WN, vitals as above well developed; no acute distress Neck: normal visual inspection Respiratory: normal respiratory effort; no labored breathing Auscultation: lungs clear to auscultation bilaterally Cardiovascular: Rate/Rhythm: + irregularly irregular Heart Sounds: no murmur Vessels: no JVD Extremities: + edema (trace pretibial edema b/l ) Gastrointestinal (Abdomen): normal bowel sounds, soft, nontender, no hepatosplenomegaly Neurologic: PERRL, EOMI, accommodation nl, no face palsy, no dysarthria Psychiatric: A+Ox3, euthymic affect Results & Data Vital Signs (Past 12 Hours) Vital Signs Temp Pulse Pulse Resp BP BP Pulse Ox 07/19/25 07:28 36.8 C 102 H 16 142/74 H 95 07/19/25 07:02 98 H 07/19/25 03:40 36.7 C 101 H 16 119/72 93 07/19/25 00:31 36.7 C 105 H 16 122/72 94 O2 Del Method 07/19/25 07:28 Room Air 07/19/25 07:02 07/19/25 03:40 Room Air 07/19/25 00:31 Room Air Laboratory Results Intake and Output 07/18/25 07/19/25 07/19/25 22:59 06:59 14:59 Intake Total 200 / 1350 350 / 1350 Output Total 650 / 2050 650 / 2050 Balance -450 / -700 -300 / -700 Intake: Oral 200 / 1350 350 / 1350 Output: Urine Amount (Catheter) 650 / 2050 650 / 2050 Hernandez/Indwelling 650 / 2050 650 / 2050 Other: Weight 83 kg 83 kg Weight Measurement Method Built in [facility] Patient Weight 07/20/25 06:59 Weight 83 kg Diagnostic Findings Telemetry reviewed Afib with improved rates ranging 80-100 bmp Medications Administered Current Inpatient Medications Acetaminophen (Acetaminophen 325 Mg Tab) 650 mg PO Q4H PRN PRN Reason: Pain or Fever Stop: 08/15/25 18:10 Last Admin: 07/17/25 05:43 Dose: 650 mg Diltiazem HCl (Diltiazem Hcl 240 Mg Capcr) 240 mg PO QAM [facility] Stop: 08/18/25 08:59 Last Admin: 07/19/25 08:45 Dose: 240 mg Enoxaparin Sodium (Enoxaparin Inj 40 Mg/0.4 Ml Syr) 40 mg SQ QAM MARTHA Stop: 08/16/25 13:29 Last Admin: 07/19/25 08:47 Dose: Not Given Finasteride (Finasteride 5 Mg Tab) 5 mg PO QAM MARTHA Stop: 08/16/25 12:59 Last Admin: 07/19/25 08:46 Dose: 5 mg Melatonin (Melatonin 3 Mg Tab) 3 mg PO HS PRN PRN Reason: Sleep Stop: 08/15/25 18:10 Last Admin: 07/17/25 21:12 Dose: 3 mg Ondansetron HCl (Ondansetron Inj 2 Mg/Ml 2 Ml Vial) 4 mg IV Q6H PRN PRN Reason: Nausea Stop: 08/15/25 18:10 Last Admin: 07/18/25 11:51 Dose: 4 mg Polyethylene Glycol (Polyethylene (Miralax) 17 Gm Pack) 17 gm PO DAILY PRN PRN Reason: Constipation Stop: 08/15/25 18:10 Potassium Chloride (Potassium Chloride 10 Meq Tabcr) 40 meq PO DAILY MARTHA Stop: 08/16/25 09:44 Last Admin: 07/19/25 08:45 Dose: 40 meq Propranolol HCl (Propranolol Hcl 20 Mg Tab) 120 mg PO Q8H MARTHA Stop: 08/18/25 07:59 Last Admin: 07/19/25 08:45 Dose: 120 mg Propylthiouracil (Propylthiouracil 50 Mg Tab) 200 mg PO Q6H MARTHA Stop: 08/15/25 14:59 Last Admin: 07/19/25 08:45 Dose: 200 mg Tamsulosin HCl (Tamsulosin Hcl 0.4 Mg Cap) 0.4 mg PO QAM MARTHA Stop: 08/16/25 08:59 Last Admin: 07/19/25 08:47 Dose: 0.4 mg Tamsulosin HCl (Tamsulosin Hcl 0.4 Mg Cap) 0.4 mg PO HS MARTHA Stop: 08/15/25 20:59 Last Admin: 07/18/25 21:13 Dose: 0.4 mg PG Care Time/CCT Total # of Minutes Spent Total Time Spent with Patient: Total time spent is greater than 50% in coordination of care (as documented) at patient's floor/unit and/or counseling patient: 35 Coding Level of Care Code 79006 SUB INP/OBS CARE 350MIN Diagnoses Atrial fibrillation with RVR I48.91 Thyrotoxicosis due to Graves' disease E05.00 Leg edema R60.0 Hypokalemia E87.6
--- NOTE | 2025-07-20 08:19 | Electrocardiogram Report ---
Test Reason : Blood Pressure : */* mmHG Vent. Rate : 117 BPM Atrial Rate : * BPM P-R Int : * ms QRS Dur : 86 ms QT Int : 330 ms P-R-T Axes : * -31 45 degrees QTcB Int : 460 ms Atrial fibrillation with rapid ventricular response with premature ventricular or aberrantly conducte d complexes Left axis deviation Low voltage QRS Inferior infarct , age undetermined Cannot rule out Anterior infarct , age undetermined Abnormal ECG When compared with ECG of 11-Feb-2011 06:43, Inferior infarct is now Present Confirmed by Navjot Romeo ([id number]) on 07/20/2025 8:19:33 AM Referred By: REFERRED SELF Confirmed By: Navjot Romeo
== END 2025-07-19 13:58 | disposition home or self-care (01) | DRG 643 ==
LOC: ED 10:24 → EDINP 14:28 → SUATTDRO 14:28 → EDINP 17:33 → 4W 18:06